=== PATIENT | male | born 1965 | race Caucasian/White ===

== ENCOUNTER 2019-01-26 13:58 | Inpatient (IN) ==
[2019-01-26] MEDS ORDERED: KETOROLAC 30 MG/ML VIAL IV ONE (14:04)
[2019-01-26] MEDS ORDERED: 0.9 % SODIUM CHLORIDE 1,000 ML IV ONE (14:08)
[2019-01-26] MEDS ORDERED: ONDANSETRON 4 MG/2 ML VIAL IV ONE (14:08)
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
[2019-01-26 15:14] LABS: Basophils # (Auto) 0 K/mcL (0.0-0.3); Basophils % (Auto) 0.5 % (0.0-2.0); Eosinophils # (Auto) 0.2 K/mcL (0.0-0.7); Eosinophils % (Auto) 2.6 % (0.0-7.0); Granulocytes % (Auto) 74.9 % (38.0-78.0); Hematocrit 42.9 % (41.0-55.0); Hemoglobin 14.9 g/dL (13.5-16.5); Lymphocytes # (Auto) 1.1 K/mcL (1.5-4.8); Mean Cell Volume 83.7 fL (80.0-100.0); Mean Corpuscular HGB Conc 34.6 g/dL (31.0-36.0); Mean Platelet Volume 7.4 fL (7.4-10.4); Monocytes # (Auto) 0.8 K/mcL (0.1-0.9); Platelet Count 307 K/mcL (140-440); RBC 5.12 M/mcL (4.50-5.90); Red Cell Distribution Width 12.1 % (11.5-14.5); WBC 8.8 K/mcL (4.5-11.0)
--- NOTE | 2019-01-26 15:27 | XRay Report ---
HISTORY: Stepped on nail three days ago with pain in the foot and ankle FINDINGS: Three views were obtained of the right foot and ankle separately. There is soft tissue swelling with gas in the subcutaneous tissues lateral to the head of the fifth metatarsal. There is resorption of bone in the head of the metatarsal with milder resorption at the base of the proximal phalanx in the fifth toe. The fifth metatarsal phalangeal joint is widened. There is no gas in the joint space. No foreign body is present at this site. There is no reabsorption of bone throughout the remainder of the foot or ankle. Patient has mild to moderate osteoarthritis in the ankle with moderate size spurs along the margins of both medial lateral malleoli. The ankle joint space is normal in width. There is no joint effusion. Small spur is present in the plantar surface of the calcaneus. There is also mild arthritis at the first metatarsal phalangeal joint. Mild soft tissue swelling is present around the ankle. IMPRESSION: Osteomyelitis in the head of the fifth metatarsal and a septic joint at the fifth metatarsal phalangeal joint IMPRESSION: Interpreted and Authenticated by: Paul Marrero 01/26/19
[2019-01-26 15:31] LABS: ALT/SGPT 24 U/l (0-40); AST/SGOT 16 U/l (0-37); Albumin 4.1 gm/dL (3.2-5.2); Albumin/Globulin Ratio 1.1 (1.0-2.3); Alkaline Phosphatase 98 U/L (39-117); Bilirubin,Total 0.3 mg/dL (0.0-1.0); Blood Urea Nitrogen 15 mg/dl (6-20); Calcium 9.8 mg/dl (8.6-10.4); Carbon Dioxide 25 mmol/L (22-30); Chloride 94 mmol/L (96-108); Globulin 3.6 gm/dL (2.2-3.7); Glomerular Filtration Rate 103; Glucose 260 mg/dL (70-105)
--- NOTE | 2019-01-26 17:10 | Internal Med History&Physical ---
Medical - H&P: [facility] Patient information: Note initiated : 01/26/19 at 5:06 pm Service Date, if different from initiated Date: [] Patient: Rivera Major 53 y/o M admitted on for Foot Ulcer. Chief Complaint: [] History of present illness: Mr. Major is a 53 year old M 53-year-old male who sent in by Dr. French and Dr. Vides and has been undergoing IV antibiotics for a diabetic right foot ulcer with no improvement, and has been following with wound care. He has been on IV vancomycin for at least the past 5 days. He was sent in for failure of outpatient therapy and likely needing surgical debridement. Patient states over the past few days is also increased in redness and swelling. His blood glucose is 260. He says his blood sugars typically run between 100- 180 however his A1c outpatient was 14. Blood pressure was elevated in the ED however patient states it is typically 140-150. He says it is draining some clear fluid. He first noticed the wound about 5 weeks ago when he was walking on his floor noticed blood from his foot. In the ED foot x-ray showed osteo-of the head of the fifth metatarsal and infection in the joint. Dr. vides discussed the case with Dr. Pantoja and also request ID consultation. She feels a little chills but no fever. No other pains or complaints but is quite anxious and worried about his foot. Review of Systems: Pertinent positives as above. Denies headache/fever/chills/nausea/vomiting/chest or abdominal pain/cough/dysp anita/diarrhea. Remaining 10 point review of system reviewed negative. Medical - H&P: PMH Medical history: Past medical history: Diabetes Anxiety Osteoarthritis Obesity Past surgical history: Right total knee arthroplasty Appendectomy Umbilical hernia repair Family: Mother colon cancer Father with heart disease and alcohol use Social history: Denies tobacco Occasional alcohol Medical - H&P: Meds Home Medications Medication Instructions Recorded Confirmed Type LORazepam [Ativan] 2 mg PO HSP PRN 12/05/14 12/08/14 History Multivitamin [Once Daily] 1 tab PO DAILY 12/05/14 12/08/14 History [place]-3 Fatty Acids/Fish Oil 1 cap PO DAILY 12/05/14 12/08/14 History [[place] 3 Fish Oil Softgel] Vitamin D3 1,000 unit PO DAILY 12/05/14 12/08/14 History metFORMIN [Glucophage] 1,000 mg PO BIDCC 12/05/14 12/08/14 History morphine 15 mg PO Q6HP PRN 12/05/14 12/08/14 History HYDROcodone/APAP 10/325MG [[place] 1 - 2 tab PO Q4H PRN #60 tablet 12/10/14 Rx 10/325Mg] Allergies Allergy/AdvReac Type Severity Reaction Status Date / Time No Known Drug Allergies Allergy Verified 12/08/14 10:43 Medical - H&P: Exam - Constitutional Vitals: Temp Pulse Resp BP Pulse Ox 99.1 F H 94 H 16 177/95 98 01/26/19 14:00 01/26/19 15:42 01/26/19 14:00 01/26/19 14:00 01/26/19 15:42 Exam: General: Alert, Awake, No acute Distress, obese Eyes/N/T: EOMI, PEERL, Head/Neck: neck supple, normocephalic atraumatic CV: RRR, No murmurs, normal s1/s2 Pulm: Clear b/l, no wheezing/rhonchi/rales Abd: soft, nontender, +BS x4 Ext: no clubbing/cyanosis/edema LLE. Right foot/ankle with erythema/swelling, dressing in place Neuro: Alert, no focal deficits, moves all extremities, CN 2-12 grossly intact, symmetrical strength b/l upper/lower, decreased sensations bilateral feet chronic Skin: warm/dry Medical - H&P: Reslt - Labs CBC & Chem 7: 01/26/19 14:37 01/26/19 14:37 Labs: Short CBC 01/26/19 Range/Units 14:37 WBC 8.8 (4.5-11.0) K/mcL Hgb 14.9 (13.5-16.5) g/dL Hct 42.9 (41.0-55.0) % Plt Count 307 (140-440) K/mcL BMP 01/26/19 14:37 Sodium 132 L Potassium 3.8 Chloride 94 L Carbon Dioxide 25 BUN 15 Creatinine 0.8 Glucose 260 H Calcium 9.8 Liver Function 01/26/19 Range/Units 14:37 Total Bilirubin 0.3 (0.0-1.0) mg/dL AST 16 (0-37) U/l ALT 24 (0-40) U/l Alkaline Phosphatase 98 (39-117) U/L Albumin 4.1 (3.2-5.2) gm/dL - Impressions Foot imaging with osteophyte head of the fifth metatarsal and infection of the joint Medical - H&P: A/P - Narrative A/P Narrative: A: *Right Foot nonhealing diabetic foot ulcer w/surrounding cellulitis & Osteo (5th Metatarsal): failed outpt IV Abx, will need surgical debridement *DM: uncontrolled. A1c 14. Has been on metformin *HTN: *Anxiety: *Obesity P: -Dr. Vides/Kit for surgical debridement -ID consult -Eric/tegan for now, pending BC -pending ESR/CRP -prn BP meds, monitor BP -prn ativan -cont metformin but will likely need insulin started, SSI -DM education referral -ppx: heparin
[2019-01-26] MEDS ORDERED: VANCOMYCIN PER PHARMACY IV SCH (18:37)
[2019-01-26] MEDS ORDERED: LABETALOL 5 MG/ML ML IV PRN (18:37)
[2019-01-26] MEDS ORDERED: MAGNESIUM HYDROXIDE 30 ML ORAL.SUSP PO PRN (18:37)
[2019-01-26] MEDS ORDERED: ONDANSETRON 4 MG/2 ML VIAL IV PRN (18:37)
[2019-01-26] MEDS ORDERED: ALBUTEROL SULFATE 2.5 MG/3 ML NEBULIZER NEB PRN (18:37)
[2019-01-26] MEDS ORDERED: ENALAPRILAT 1.25 MG/ML VIAL IV PRN (18:37)
[2019-01-26] MEDS ORDERED: DEXTROSE 31 GM ORAL.SUSP PO PRN (18:37)
[2019-01-26] MEDS ORDERED: DEXTROSE 50% 50 ML VIAL IV PRN (18:37)
[2019-01-26] MEDS: INSULIN LISPRO 1 UNIT/0.01 ML UNIT SQ SCH ×2 (19:57→21:38)
[2019-01-26] MEDS: PIPERACILLIN SODIUM/TAZOBACTAM 3.375 GM in DEXTROSE 5% IN WATER 50 ML IV SCH ×2 (19:57→23:57)
[2019-01-26] MEDS: ACETAMINOPHEN 325 MG TABLET PO PRN (19:58)
[2019-01-26] MEDS: LORazepam 0.5 MG TABLET PO PRN (19:58)
[2019-01-26] MEDS: SENNOSIDES 1 TABLET PO SCH ×2 (21:49→21:56)
[2019-01-26] MEDS: VANCOMYCIN 1,500 MG in 0.9 % SODIUM CHLORIDE 500 ML IV SCH (21:49)
[2019-01-26] MEDS: DOCUSATE SODIUM 100 MG CAPSULE PO SCH ×2 (21:49→21:56)
[2019-01-26] MEDS: HEPARIN 5,000 UNIT/ML VIAL SQ SCH (21:49)
[2019-01-26] MEDS: INSULIN GLARGINE, HUMAN 1 UNIT/0.01 ML SQ SCH (22:02)
[2019-01-26] MEDS: 0.9 % SODIUM CHLORIDE 10 ML SYRINGE IV SCH (22:03)
[2019-01-26] MEDS ORDERED: 0.9 % SODIUM CHLORIDE 1,000 ML IV SCH (23:45)
[2019-01-27] MEDS: ACETAMINOPHEN 325 MG TABLET PO PRN (01:55)
[2019-01-27] MEDS: 0.9 % SODIUM CHLORIDE 10 ML SYRINGE IV SCH ×3 (04:32→20:09)
[2019-01-27] MEDS: PIPERACILLIN SODIUM/TAZOBACTAM 3.375 GM in DEXTROSE 5% IN WATER 50 ML IV SCH (05:14)
[2019-01-27 06:24] LABS: Basophils # (Auto) 0 K/mcL (0.0-0.3); Basophils % (Auto) 0.8 % (0.0-2.0); Eosinophils # (Auto) 0.2 K/mcL (0.0-0.7); Eosinophils % (Auto) 2.8 % (0.0-7.0); Hematocrit 41.2 % (41.0-55.0); Hemoglobin 13.9 g/dL (13.5-16.5); Lymphocytes # (Auto) 1.2 K/mcL (1.5-4.8); Lymphocytes % (Auto) 21.4 % (15.5-49.0); Mean Cell Volume 84.5 fL (80.0-100.0); Mean Corpuscular HGB Conc 33.8 g/dL (31.0-36.0); Mean Platelet Volume 7.4 fL (7.4-10.4); Monocytes # (Auto) 0.8 K/mcL (0.1-0.9); Platelet Count 268 K/mcL (140-440); RBC 4.87 M/mcL (4.50-5.90); WBC 5.8 K/mcL (4.5-11.0)
[2019-01-27 06:26] LABS: Prothrombin Time 13.1 sec (11.9-14.5)
[2019-01-27 06:59] LABS: ALT/SGPT 20 U/l (0-40); AST/SGOT 14 U/l (0-37); Albumin 3.5 gm/dL (3.2-5.2); Albumin/Globulin Ratio 1.2 (1.0-2.3); Alkaline Phosphatase 78 U/L (39-117); Bilirubin,Direct < 0.2 mg/dL (0.0-0.3); Bilirubin,Total 0.4 mg/dL (0.0-1.0); Blood Urea Nitrogen 9 mg/dl (6-20); Calcium 8.9 mg/dl (8.6-10.4); Carbon Dioxide 26 mmol/L (22-30); Chloride 99 mmol/L (96-108); Glomerular Filtration Rate 109; Glucose 344 mg/dL (70-105); Lactate Dehydrogenase 166 U/L (94-250); Phosphorous 4.2 mg/dL (2.7-4.5); Triglycerides 121 mg/dl (<150); Uric Acid 4.1 mg/dL (2.5-8.0)
--- NOTE | 2019-01-27 08:04 | Internal Med Progress Note ---
Medical - PN: Subj Patient information: Note initiated : 01/27/19 at 7:45 am Service Date, if different from initiated Date: [] Patient: Rivera Major 53 y/o M admitted on 01/26/19 for Foot Ulcer. Chief Complaint: [] Interval history: Mr. Major is a 53 year old M 53-year-old male who sent in by Dr. French and Dr. Vides and has been undergoing IV antibiotics for a diabetic right foot ulcer with no improvement, and has been following with wound care. He has been on IV vancomycin for at least the past 5 days. He was sent in for failure of outpatient therapy and likely needing surgical debridement. Patient states over the past few days is also increased in redness and swelling. His blood glucose is 260. He says his blood sugars typically run between 100- 180 however his A1c outpatient was 14. Blood pressure was elevated in the ED however patient states it is typically 140-150. He says it is draining some clear fluid. He first noticed the wound about 5 weeks ago when he was walking on his floor noticed blood from his foot. In the ED foot x-ray showed osteo-of the head of the fifth metatarsal and infection in the joint. Dr. vides discussed the case with Dr. Pantoja and also request ID consultation. She feels a little chills but no fever. No other pains or complaints but is quite anxious and worried about his foot. 01/27 Able to sleep okay last night. Feeling better and less anxious today. Feels his right foot swelling is improved as well as redness. Pressure better controlled today. No new complaints. Review of Systems: denies headache/fever/chills/nausea/vomiting/chest or abdominal pain/cough/dyspnea/diarrhea. Otherwise see above. - Constitutional Vitals: Vital Signs Temp Pulse Resp BP Pulse Ox 98.2 F 77 16 139/90 94 01/27/19 04:22 01/27/19 05:04 01/27/19 04:22 01/27/19 05:04 01/27/19 04:22 Period Temp Pulse Resp BP Sys/Fernandez Pulse Ox Last 24 Hr 97.7 F-99.6 F 77-101 14-18 123-177/72-105 93-99 Intake and Output 01/26/19 01/27/19 01/27/19 21:59 05:59 13:59 Intake Total 1050 2210 Output Total 700 4100 Balance 350 -1890 Weight 153.541 kg Intake & Output: Intake & Output 01/26/19 01/27/19 01/27/19 21:59 05:59 13:59 Intake Total 1050 2210 Output Total 700 4100 Balance 350 -1890 Weight 153.541 kg Intake: IV 1050 550 Sodium Chloride 0.9% 1,000 ml @ 1000 Wide Open IV BOLUS ONE Rx#: [id number] Zosyn 3.375 gm In Dextrose 5% 50 50 in Water 50 ml @ 100 mls/hr IV Q6H [place] Rx#:[id number] Vancomycin 1,500 mg In Sodium 500 Chloride 0.9% 500 ml @ 333.3 mls/hr IV Q12H [place] Rx#: [id number] Oral 1660 Output: Void Amount 700 4100 Other: Percent of Meal Consumed 100% Nourishment/Supplement name Egg salad cups with crackers x2, 8 king cracker squares. Urine Appearance Clear Clear Urine Color Bright Yellow Pale # Voids 1 Exam: General: Alert, Awake, No acute Distress, obese Eyes/N/T: EOMI, Head/Neck: neck supple, CV: RRR, No murmurs, Pulm: Clear b/l, no wheezing/rhonchi/rales Abd: soft, nontender, +BS x4 Ext: no clubbing/cyanosis/edema LLE. Right foot/ankle with erythema/swelling improving, dressing in place Neuro: Alert, no focal deficits, moves all extremities, Skin: warm/dry Medical - PN: Obj Da - Labs CBC & Chem 7: 01/27/19 05:12 01/27/19 05:12 Labs: Abnormal Lab Results 01/27/19 01/27/19 01/26/19 05:12 05:12 14:37 Lymph % (Auto) [place] % (Auto) 13.0 H Lymph # (Auto) 1.2 L ESR Sodium Chloride Glucose 344 H C-Reactive Protein 5.5 H 01/26/19 01/26/19 01/26/19 14:37 14:37 14:37 Lymph % (Auto) 13.0 L [place] % (Auto) Lymph # (Auto) 1.1 L ESR 55 H Sodium 132 L Chloride 94 L Glucose 260 H C-Reactive Protein Meds: Medications Acetaminophen (Tylenol) 650 mg PO Q6HP PRN; Protocol PRN Reason: Per Pain Protocol/Fever > 101 Last Admin: 01/27/19 01:55 Dose: 650 mg Documented by: Hydrocodone Bitart/Acetaminophen ([place] 5/325mg) 1 tab PO Q4HP PRN; Protocol PRN Reason: Per Pain Protocol Albuterol Sulfate (Ventolin) 2.5 mg NEB Q2HP PRN PRN Reason: Shortness Of Breath Dextrose (Dextrose 50%) 0 ml IV UD PRN PRN Reason: Hypoglycemia Diagnostic Test (Pha) (Accu-Chek) 1 each FS [facility] Last Admin: 01/27/19 07:42 Dose: 1 each Documented by: Docusate Sodium (Colace) 100 mg PO BID [facility] Last Admin: 01/26/19 21:56 Dose: Not Given Documented by: Enalaprilat (Vasotec) 0 mg IV Q2HP PRN PRN Reason: Hypertension Last Admin: 01/27/19 04:32 Dose: 0.625 mg Documented by: Glucose (Insta-Glucose) 15 gm PO PRN PRN PRN Reason: Hypoglycemia Heparin Sodium (Porcine) (Heparin) 5,000 unit SQ Q12 [facility] Last Admin: 01/26/19 21:49 Dose: 5,000 unit Documented by: Piperacillin Sod/Tazobactam (Sod 3.375 gm/ Dextrose) 50 mls @ 100 mls/hr IV Q6H [facility]; Protocol Last Admin: 01/27/19 05:14 Dose: 100 mls/hr Documented by: Vancomycin HCl 1,500 mg/ (Sodium Chloride) 500 mls @ 333.3 mls/hr IV Q12H [facility] Last Infusion: 01/26/19 23:40 Dose: Infused Documented by: Sodium Chloride (Sodium Chloride 0.9%) 1,000 mls @ 100 mls/hr IV .Q10H [facility] Stop: 01/27/19 09:44 Last Admin: 01/26/19 23:57 Dose: 100 mls/hr Documented by: Insulin Glargine (Lantus) 10 unit SQ BID [facility] Last Admin: 01/26/19 22:02 Dose: 10 unit Documented by: Insulin Human Lispro (Humalog) 0 unit SQ [facility]; Protocol Last Admin: 01/26/19 21:38 Dose: Not Given Documented by: Labetalol HCl (Trandate) 0 mg IV Q2HP PRN PRN Reason: Hypertension Lorazepam (Ativan) 0.5 mg PO Q6HP PRN PRN Reason: ANXIETY/SEDATION Last Admin: 01/26/19 19:58 Dose: 0.5 mg Documented by: Magnesium Hydroxide (Milk Of Magnesia) 30 ml PO DAILYP PRN PRN Reason: Constipation Metformin HCl (Glucophage) 1,000 mg PO BIDCC [facility] Morphine Sulfate (Morphine) 15 mg PO Q6HP PRN; Protocol PRN Reason: Pain Ondansetron HCl (Zofran) 4 mg IV Q6HP PRN PRN Reason: Nausea And Vomiting Senna (Senokot) 2 tab PO HS [facility] Last Admin: 01/26/19 21:56 Dose: Not Given Documented by: Sodium Chloride (Saline Flush) 10 ml IV Q8 [facility] Last Admin: 01/27/19 04:32 Dose: Not Given Documented by: Vancomycin HCl (Vancomycin Per Pharmacy) 1 order IV UD [facility]; Protocol Medical - PN: A/P - Time Spent With Patient Total time spent is greater than 50% in coordination of care (as documented) at patient's floor/unit and/or counseling patient: - Narrative A/P Narrative: A: *Right Foot nonhealing diabetic foot ulcer w/surrounding cellulitis & Osteo (5th Metatarsal): failed outpt IV Abx, will need surgical debridement *DM: uncontrolled. A1c 14. Has been on metformin and recently started lantus 10 bid as well as humalog *HTN: *Anxiety: *Obesity P: -Dr. Vides/Kit for surgical debridement -ID consult -Eric/tegan for now, pending BC -pending ESR/CRP -prn BP meds, monitor BP -prn ativan -cont metformin and lantus(titrate up when diet restarted), SSI -DM education referral -ppx: heparin
[2019-01-27] MEDS: INSULIN LISPRO 1 UNIT/0.01 ML UNIT SQ SCH ×6 (08:14→22:40)
[2019-01-27] MEDS: metFORMIN 500 MG TABLET PO SCH ×2 (08:20→17:20)
--- NOTE | 2019-01-27 09:49 | Orthopedic Consult Note ---
History of Present Illness - [facility] Patient information: Note initiated : 01/27/19 at 9:44 am Service Date, if different from initiated Date: [] Patient: Rivera Major 53 y/o M admitted on 01/26/19 for Foot Ulcer. Chief Complaint: [Wound right foot] Consult date: 01/26/19 Requesting physician: Brayden Rios Consult reason: other (Infection with wound right foot) History of present illness: Patient has a recent history of an ulceration on the right foot. He stepped on a sharp object but didn't know it because of the lack of feeling in the foot. X- ray was taken yesterday with shows osteomyelitis in the head of the fifth metatarsal and a septic joint at the fifth metatarsal phalangeal joint. Review of Systems Constitutional: as per [facility] Medications and Allergies Home Medications Medication Instructions Recorded Confirmed Type LORazepam [Ativan] 2 mg PO HSP PRN 12/05/14 01/26/19 History Multivitamin [Once Daily] 1 tab PO DAILY 12/05/14 01/26/19 History [place]-3 Fatty Acids/Fish Oil 1 cap PO DAILY 12/05/14 01/26/19 History [[place] 3 Fish Oil Softgel] Vitamin D3 1,000 unit PO DAILY 12/05/14 01/26/19 History metFORMIN [Glucophage] 1,000 mg PO BIDCC 12/05/14 01/26/19 History morphine 15 mg PO Q6HP PRN 12/05/14 01/26/19 History HYDROcodone/APAP 10/325MG [[place] 1 - 2 tab PO Q4H PRN #60 tablet 12/10/14 01/26/19 Rx 10/325Mg] Lantus Solostar 10 unit SQ BID 01/26/19 01/26/19 History Allergies Allergy/AdvReac Type Severity Reaction Status Date / Time No Known Drug Allergies Allergy Verified 12/08/14 10:43 Physical Examination - Ankle & Foot right Ankle appearance: swelling, erythema Foot appearance: swelling, erythema Assessment and Plan (1) Osteomyelitis Status: Acute Priority: High Qualifiers: Osteomyelitis type: other acute Osteomyelitis location: foot Laterality: right Qualified Code(s): M86.171 - Other acute osteomyelitis, right ankle and foot - Narrative A/P Narrative: Amputation planed of the fifth metatarsal with irrigation
[2019-01-27] MEDS ORDERED: SCOPOLAMINE 1 PATCH PATCH TOPICAL PRN (10:01)
[2019-01-27] MEDS ORDERED: IPRATROPIUM/ALBUTEROL 3 ML AMPUL.NEB NEB PRN ×2 (10:01→12:19)
[2019-01-27] MEDS: HEPARIN 5,000 UNIT/ML VIAL SQ SCH ×2 (10:10→20:07)
[2019-01-27] MEDS: INSULIN GLARGINE, HUMAN 1 UNIT/0.01 ML SQ SCH ×2 (10:11→20:07)
[2019-01-27] MEDS: DOCUSATE SODIUM 100 MG CAPSULE PO SCH ×2 (10:11→20:08)
--- NOTE | 2019-01-27 10:18 | General Surgery Consult Note ---
History of Present Illness Patient information: Note initiated : 01/27/19 at 9:48 am Service Date, if different from initiated Date: [] Patient: Rivera Major 53 y/o M admitted on 01/26/19 for Foot Ulcer. Chief Complaint: [] I saw this patient for FIRST time in the clinic for a NON healing neuropathic ulcer of RIGHT plantar anterior lateral foot with edema and cellulitis involving foot, ankle and leg. I reassesses him this morning with ANKITA Geiger, Inpatient wound care nurse. He was referred to ER for admission, evaluation and further management. I discussed his presentation and reviewed clinical pictures of initial encounter with Dr. Russell, ER Physician and Dr. Rios, Hospitalist Physician. Later, I discussed this case with Dr.Karl Squires, Self Contained Behavior Unit Teacher and requested a consultation from him for surgical debridement. Medications and Allergies Home Medications Medication Instructions Recorded Confirmed Type LORazepam [Ativan] 2 mg PO HSP PRN 12/05/14 01/26/19 History Multivitamin [Once Daily] 1 tab PO DAILY 12/05/14 01/26/19 History [place]-3 Fatty Acids/Fish Oil 1 cap PO DAILY 12/05/14 01/26/19 History [[place] 3 Fish Oil Softgel] Vitamin D3 1,000 unit PO DAILY 12/05/14 01/26/19 History metFORMIN [Glucophage] 1,000 mg PO BIDCC 12/05/14 01/26/19 History morphine 15 mg PO Q6HP PRN 12/05/14 01/26/19 History HYDROcodone/APAP 10/325MG [[place] 1 - 2 tab PO Q4H PRN #60 tablet 12/10/14 01/26/19 Rx 10/325Mg] Lantus Solostar 10 unit SQ BID 01/26/19 01/26/19 History Allergies Allergy/AdvReac Type Severity Reaction Status Date / Time No Known Drug Allergies Allergy Verified 12/08/14 10:43 Exam Temp Pulse Resp BP Pulse Ox 98.3 F 79 18 99/58 96 01/27/19 08:00 01/27/19 08:00 01/27/19 08:00 01/27/19 08:00 01/27/19 08:00 - General physical appearance well developed, well nourished, no pain - Eyes PERRL, normal ocular movement - ENT normal pinna, normal mucosa, no congestion - Head Head exam IM: Present: atraumatic, normocephalic - Neck no masses, trachea midline, no venous distension - Cardiovascular Cardiovascular exam IM: Present: normal rate and rhythm - Respiratory normal respiratory effort, clear to auscultation - Abdomen Abdomen: Present: soft, non tender, bowel sounds - Integumentary Present: other (Infected wound plantar neuropathic ulcer RIGHT anterior lateral foot and cellulitis with edema involving foot, ankle and lower 2/3rds of leg. ) - Neurologic Present: other ([place]. Peripheral neuropathy. ) - Musculoskeletal Present: other (Infected open wound probes to the bone. RIGHT plantar 5 the toe MPJ area. ) - Psychiatric Present: oriented to time, oriented to person, oriented to place, speech is normal, memory intact, other (Distressed because of the circumstances . ) Results - Labs 01/27/19 05:12 01/27/19 05:12 Abnormal lab results 01/26/19 01/26/19 01/26/19 Range/Units 14:37 14:37 14:37 Lymph % (Auto) 13.0 L (15.5-49.0) % [place] % (Auto) (1.0-12.0) % Lymph # (Auto) 1.1 L (1.5-4.8) K/mcL ESR 55 H (0-15) mm/hr Sodium 132 L (133-145) mmol/L Chloride 94 L (96-108) mmol/L Glucose 260 H (70-105) mg/dL C-Reactive Protein (0.0-0.8) mg/dl 01/26/19 01/27/19 01/27/19 Range/Units 14:37 05:12 05:12 Lymph % (Auto) (15.5-49.0) % [place] % (Auto) 13.0 H (1.0-12.0) % Lymph # (Auto) 1.2 L (1.5-4.8) K/mcL ESR (0-15) mm/hr Sodium (133-145) mmol/L Chloride (96-108) mmol/L Glucose 344 H (70-105) mg/dL C-Reactive Protein 5.5 H (0.0-0.8) mg/dl Diabetes panel 01/26/19 01/27/19 Range/Units 14:37 05:12 Sodium 132 L 137 (133-145) mmol/L Potassium 3.8 4.2 (3.3-5.1) mmol/L Chloride 94 L 99 (96-108) mmol/L Carbon Dioxide 25 26 (22-30) mmol/L BUN 15 9 (6-20) mg/dl Creatinine 0.8 0.7 (0.7-1.2) mg/dl Glucose 260 H 344 H (70-105) mg/dL Calcium 9.8 8.9 (8.6-10.4) mg/dl AST 16 14 (0-37) U/l ALT 24 20 (0-40) U/l Alkaline Phosphatase 98 78 (39-117) U/L Total Protein 7.7 6.5 (5.9-8.4) gm/dL Albumin 4.1 3.5 (3.2-5.2) gm/dL Triglycerides 121 (<150) mg/dl Calcium panel 01/26/19 01/27/19 Range/Units 14:37 05:12 Calcium 9.8 8.9 (8.6-10.4) mg/dl Phosphorus 4.2 (2.7-4.5) mg/dL Albumin 4.1 3.5 (3.2-5.2) gm/dL Pituitary panel 01/26/19 01/27/19 Range/Units 14:37 05:12 Sodium 132 L 137 (133-145) mmol/L Potassium 3.8 4.2 (3.3-5.1) mmol/L Chloride 94 L 99 (96-108) mmol/L Carbon Dioxide 25 26 (22-30) mmol/L BUN 15 9 (6-20) mg/dl Creatinine 0.8 0.7 (0.7-1.2) mg/dl Glucose 260 H 344 H (70-105) mg/dL Calcium 9.8 8.9 (8.6-10.4) mg/dl Adrenal panel 01/26/19 01/27/19 Range/Units 14:37 05:12 Sodium 132 L 137 (133-145) mmol/L Potassium 3.8 4.2 (3.3-5.1) mmol/L Chloride 94 L 99 (96-108) mmol/L Carbon Dioxide 25 26 (22-30) mmol/L BUN 15 9 (6-20) mg/dl Creatinine 0.8 0.7 (0.7-1.2) mg/dl Glucose 260 H 344 H (70-105) mg/dL Calcium 9.8 8.9 (8.6-10.4) mg/dl Total Bilirubin 0.3 0.4 (0.0-1.0) mg/dL AST 16 14 (0-37) U/l ALT 24 20 (0-40) U/l Alkaline Phosphatase 98 78 (39-117) U/L Total Protein 7.7 6.5 (5.9-8.4) gm/dL Albumin 4.1 3.5 (3.2-5.2) gm/dL All other labs normal. Assessment and Plan (1) Cellulitis Status: Acute Priority: High Qualifiers: Site of cellulitis of extremity: lower extremity Laterality: right (2) Diabetic foot infection Status: Acute Priority: High (3) Osteomyelitis Status: Acute Priority: High Qualifiers: Osteomyelitis type: other acute Osteomyelitis location: foot Laterality: right Qualified Code(s): M86.171 - Other acute osteomyelitis, right ankle and foot (4) Septic arthritis Status: Acute Priority: High Comment: INFECTED neuropathic traumatic and pressure ulcer RIGHT lateral foot with cellulitis. Acute osteomyelitis of 5th toe MPJ. Patient referred to Dr. ALESSANDRA SQUIRES, Self Contained Behavior Unit Teacher for surgery / debridement. I will be follwo ing htis patietnfrom wound care point of view. Qualifiers: Septic arthritis location: foot Laterality: right
[2019-01-27] MEDS: VANCOMYCIN 1,500 MG in 0.9 % SODIUM CHLORIDE 500 ML IV SCH (10:49)
[2019-01-27 11:21] LABS: Estimated Average Glucose(eAG) 344 mg/dL; Hemoglobin A1C 13.6 % HGB (4.0-6.0)
[2019-01-27 11:23] LABS: Appearance,Urine CLEAR; Bacteria,Urine 0 /hpf (0); Bilirubin,Urine NEG (NEG); Color,Urine YELLOW; Culture Indicated,Urine NO; Glucose,Urine (UA) >=500 mg/dL (NEG); Ketones,Urine NEG (NEG); Leukocyte Esterase,Urine NEG /uL (NEG); Mucus,Urine FEW /hpf (0); Nitrate,Urine NEG (NEG); Protein,Urine NEG (NEG); Specific Gravity,Urine 1.024 (1.000-1.035); Urine Blood NEG mg/dL (<0.03); Urine RBC 1 /hpf (0-1); Urine Squamous Epithelial Cell 0 /hpf (0-4); Urine WBC < 1 /hpf (0-4); Urobilinogen,Urine NEG (NEG)
[2019-01-27] MEDS ORDERED: ONDANSETRON 4 MG/2 ML VIAL IV ONE (11:56)
[2019-01-27] MEDS ORDERED: KETAMINE 100 MG/ML ML IV ONE (11:56)
[2019-01-27] MEDS ORDERED: PROPOFOL 200 MG/20 ML VIAL IV ONE (11:56)
[2019-01-27] MEDS ORDERED: LIDOCAINE HCL/PF 100 MG/5 ML SYRINGE IV ONE (11:56)
[2019-01-27] MEDS ORDERED: DEXAMETHASONE 10 MG/ML VIAL IV ONE (11:56)
[2019-01-27] MEDS ORDERED: NALOXONE HCL 0.4 MG/ML VIAL IV PRN (12:19)
[2019-01-27] MEDS ORDERED: LACTATED RINGERS 250 ML IV PRN (12:19)
[2019-01-27] MEDS ORDERED: PROMETHAZINE 25 MG/ML VIAL IV PRN (12:19)
[2019-01-27] MEDS ORDERED: MEPERIDINE 25 MG/ML SYRINGE IV PRN (12:19)
[2019-01-27] MEDS ORDERED: diphenhydrAMINE 50 MG/ML VIAL IV PRN (12:19)
[2019-01-27] MEDS ORDERED: fentaNYL 100 MCG/2 ML VIAL IV PRN (12:19)
[2019-01-27] MEDS ORDERED: ONDANSETRON 4 MG/2 ML VIAL IV PRN (12:19)
--- NOTE | 2019-01-27 12:29 | Brief Operative Note ---
Date of procedure: 01/27/19 Pre-op diagnosis: Osteomyelitis right fifth metatarsal Post-op diagnosis: same Procedure: Partial amputation fifth metatarsal with incision and drainage Grafts/Implants: No Anesthesia: GLMA Complications: none Surgeon: Carl Pantoja Estimated blood loss (cc): 50 Specimens Removed/Pathology: other (Bone and fluid culture) Condition: stable Disposition: PACU
[2019-01-27] MEDS ORDERED: LACTATED RINGERS 1,000 ML IV SCH (12:30)
--- NOTE | 2019-01-27 12:43 | Operative Note ---
DATE OF OPERATION: 01/27/2019 PREOPERATIVE DIAGNOSIS: Osteomyelitis, right fifth metatarsal. POSTOPERATIVE DIAGNOSIS: Osteomyelitis, right fifth metatarsal. PROCEDURE: Partial amputation right fifth metatarsal with incision and drainage. SURGEON: Carl Pantoja DPM IMPLANTS: None. ANESTHESIA: GLMA. ESTIMATED BLOOD LOSS: 50 mL SPECIMENS: Bone and fluid culture, right foot. CONDITION: Stable. DISPOSITION: PACU. DESCRIPTION OF PROCEDURE: The patient was brought to the operating room and placed on the operative table in supine position. The right lower extremity was scrubbed, prepped and draped in the usual aseptic manner. GLMA initiated. A 3 cm incision was placed on the dorsal medial aspect of the right fifth metatarsal. A full thickness flap was created. There is abundant purulent drainage and associated wound on the plantar aspect which communicated through the dorsal aspect. This culture was taken and sent for pathological and microbiological assessment. A sagittal saw was used to remove a bone from the half of the shaft of the fifth metatarsal to the metatarsophalangeal joint. The neck of the metatarsal was noted to be very soft and degenerate and necrotic. This was fully irrigated and removed. A 3 liter bag of normal saline was used under pulse lavage to clean this area. Additional inspection revealed no remaining bone. The area was packed with Betadine-soaked gauze, Kerlix, Webril, and an EVERARDO wrap. The patient tolerated the procedure and anesthesia well. He will continue to receive four antibiotics and follow up in the hospital. KDJ:diana Job ID: [id number] Doc ID: [id number] Carl Pantoja DPM
[2019-01-27] MEDS: ACETAMINOPHEN 1,000 MG/100 ML BOTTLE IV SCH ×2 (12:50→19:02)
[2019-01-27] MEDS: HYDROcodone/APAP 5/325MG TABLET PO PRN ×2 (14:37→19:55)
[2019-01-27] MEDS: LORazepam 0.5 MG TABLET PO PRN ×2 (15:09→21:18)
[2019-01-27] MEDS: morphine 15 MG TABLET PO PRN ×2 (17:46→23:10)
[2019-01-27] MEDS: LINEZOLID 600 MG TABLET PO SCH (20:06)
[2019-01-27] MEDS: SENNOSIDES 1 TABLET PO SCH (20:08)
--- NOTE | 2019-01-27 20:25 | Infectious Disease Consult ---
History of Present Illness Patient information: Note initiated : 01/27/19 at 8:05 pm Service Date, if different from initiated Date: [] Patient: Rivera Major 53 y/o M admitted on 01/26/19 for Foot Ulcer. Chief Complaint: [] Consult date: 01/27/19 Requesting Physician: Brayden Rios Reason for Consult: right foot infection Chief complaint: i have swelling of right leg and pus drainage from foot wound History of present illness: 53-year-old man with PMHx of: - DM2, on insulin: A1C 14 - b/l knee replacement Pt is admitted after acute swelling, redness of right leg and pus drainage from right foot wound. Pt thinks that he stepped on something sharp in his basement about a month ago. He didnot pay much attention, and continued to work. His work involves walking and climbing multiple steps everyday. His PCP attempted treatment with PO Bactrim with no improvement, and tried IV Vanc for 5 days. Pt has been following with wound care at [facility], who recommended admission to hospital for surgical debridement. He endorsed subj fevers. Denied any pet contact, n/v, diarrhea. In the ED on 01/26, BP was 148/84, rest VS were normal, WBC 8.8, Cr 0.8. A right foot x-ray showed Osteomyelitis in the head of the fifth metatarsal and a septic joint at the fifth metatarsal phalangeal joint. Pt was started on IV Vanc and IV Zosyn. Blood Cx, 2 sets were sent. Pt had an uneventful night. At time of visit, pt was doing well. He was NPO for his scheduled foot debridement surgery. IV Vanc and IV Zosyn were stopped (to increase the diagnostic yield of cultures). He later underwent "Partial amputation right fifth metatarsal with incision and drainage" with operative Cx sent. Review of Systems All systems PM: reviewed and no additional remarkable complaints except as state d Constitutional: as per HPI Past History Past medical history: past hx of Staph aureus wound infections Past family history: no sick contacts Past social history: lives in [place] Medications and Allergies Home Medications Medication Instructions Recorded Confirmed Type LORazepam [Ativan] 2 mg PO HSP PRN 12/05/14 01/26/19 History Multivitamin [Once Daily] 1 tab PO DAILY 12/05/14 01/26/19 History [place]-3 Fatty Acids/Fish Oil 1 cap PO DAILY 12/05/14 01/26/19 History [[place] 3 Fish Oil Softgel] Vitamin D3 1,000 unit PO DAILY 12/05/14 01/26/19 History metFORMIN [Glucophage] 1,000 mg PO BIDCC 12/05/14 01/26/19 History morphine 15 mg PO Q6HP PRN 12/05/14 01/26/19 History HYDROcodone/APAP 10/325MG [[place] 1 - 2 tab PO Q4H PRN #60 tablet 12/10/14 01/26/19 Rx 10/325Mg] Lantus Solostar 10 unit SQ BID 01/26/19 01/26/19 History Allergies Allergy/AdvReac Type Severity Reaction Status Date / Time No Known Drug Allergies Allergy Verified 12/08/14 10:43 Physical Examination Vital signs: Temp Pulse Resp BP Pulse Ox 37.4 C H 90 20 150/88 92 01/27/19 19:41 01/27/19 19:41 01/27/19 19:41 01/27/19 19:41 01/27/19 19:41 General appearance: no acute distress Eyes pulmonary: nonicteric ENT: oropharynx moist Auscultation: bilateral: clear Cardiovascular: regular rate and rhythm Gastrointestinal: normoactive bowel sounds, non-tender Extremities: other (swelling of right leg below mid wilkerson, with pitting edema. Warm to touch. Minimally tender. Has a single wound on the lateral aspect of right forefoot, with purulence and tracking all way to bone. No gangrene. Dorsalis pedis palpable) Results - Laboratory Findings CBC and BMP: 01/27/19 05:12 01/27/19 05:12 PT/INR, D-dimer PT 13.1 sec (11.9-14.5) 01/27/19 05:12 INR 1.0 (0.9-1.1) 01/27/19 05:12 Abnormal lab findings: Abnormal Labs 01/26/19 01/26/19 01/26/19 14:37 14:37 14:37 Lymph % (Auto) 13.0 L [place] % (Auto) Lymph # (Auto) 1.1 L ESR 55 H Sodium 132 L Chloride 94 L Glucose 260 H Hemoglobin A1c C-Reactive Protein Urine Glucose (UA) 01/26/19 01/27/1919 14:37 05:12 05:12 Lymph % (Auto) [place] % (Auto) 13.0 H Lymph # (Auto) 1.2 L ESR Sodium Chloride Glucose 344 H Hemoglobin A1c C-Reactive Protein 5.5 H Urine Glucose (UA) 01/27/19 01/27/19 10:15 10:47 Lymph % (Auto) [place] % (Auto) Lymph # (Auto) ESR Sodium Chloride Glucose Hemoglobin A1c 13.6 H C-Reactive Protein Urine Glucose (UA) >=500 A Microbiology: Microbiology 01/26/19 15:12 Blood Blood Culture - Preliminary 01/26/19 14:37 Blood Blood Culture - Preliminary 01/26/19 11:18 Nose MRSA (PCR) - Final 01/27/19 11:00 Foot - Right Gram Stain - Final Assessment and Plan - Narrative A/P Narrative: A: 1. Rt 5th metatarsal osteomyelitis and right 5th MTP septic arthritis: -mechanism: contiguous focus - risk factors: DM2, peripheral neuropathy, continued weight bearing - no sepsis 2. Screening for MRSA: nasal PCR neg Recommendations: - Start PO Linezolid 600 mg q12 hrs for now - await operative and superficial tissue Cx obtained today. will modify treatment based on ID and sensi - anticipate 6 weeks of antibiotics will follow Holger Rogers MD Infectious diseases
[2019-01-27] MEDS: HYDROcodone/APAP 10/325MG TABLET PO PRN (23:40)
[2019-01-27] MEDS ORDERED: HYDROcodone/APAP 10/325MG TABLET PO ONE (23:44)
[2019-01-28] MEDS: ACETAMINOPHEN 1,000 MG/100 ML BOTTLE IV SCH ×2 (00:59→07:37)
[2019-01-28] MEDS: HYDROcodone/APAP 10/325MG TABLET PO PRN ×5 (04:28→21:34)
[2019-01-28] MEDS ORDERED: HYDROcodone/APAP 10/325MG TABLET PO ONE (04:30)
[2019-01-28] MEDS: INSULIN LISPRO 1 UNIT/0.01 ML UNIT SQ SCH ×5 (04:47→20:30)
[2019-01-28 06:39] LABS: Blood Urea Nitrogen 15 mg/dl (6-20); Calcium 9.6 mg/dl (8.6-10.4); Carbon Dioxide 26 mmol/L (22-30); Chloride 97 mmol/L (96-108); Glomerular Filtration Rate 103; Glucose 245 mg/dL (70-105)
[2019-01-28] MEDS: 0.9 % SODIUM CHLORIDE 10 ML SYRINGE IV SCH ×3 (06:58→20:31)
[2019-01-28] MEDS: HYDROmorphone 2 MG/ML VIAL IV PRN ×3 (07:39→19:18)
--- NOTE | 2019-01-28 07:59 | Internal Med Progress Note ---
Medical - PN: Subj Patient information: Note initiated : 01/28/19 at 7:54 am Service Date, if different from initiated Date: [] Patient: Rivera Major 53 y/o M admitted on 01/26/19 for Foot Ulcer. Chief Complaint: [] Interval history: Mr. Major is a 53 year old M 53-year-old male who sent in by Dr. French and Dr. Vides and has been undergoing IV antibiotics for a diabetic right foot ulcer with no improvement, and has been following with wound care. He has been on IV vancomycin for at least the past 5 days. He was sent in for failure of outpatient therapy and likely needing surgical debridement. Patient states over the past few days is also increased in redness and swelling. His blood glucose is 260. He says his blood sugars typically run between 100- 180 however his A1c outpatient was 14. Blood pressure was elevated in the ED however patient states it is typically 140-150. He says it is draining some clear fluid. He first noticed the wound about 5 weeks ago when he was walking on his floor noticed blood from his foot. In the ED foot x-ray showed osteo-of the head of the fifth metatarsal and infection in the joint. Dr. vides discussed the case with Dr. Pantoja and also request ID consultation. She feels a little chills but no fever. No other pains or complaints but is quite anxious and worried about his foot. 01/27 Able to sleep okay last night. Feeling better and less anxious today. Feels his right foot swelling is improved as well as redness. Pressure better controlled today. No new complaints. 01/28 Pain increased last night better controlled with PRN IV medication. Patient anxious at times. Blood glucose elevated and increasing Lantus. Occasional headache Review of Systems: denies fever/chills/nausea/vomiting/chest or abdominal pain /cough/dyspnea/diarrhea. Otherwise see above. - Constitutional Vitals: Vital Signs Temp Pulse Resp BP Pulse Ox 97.4 F 72 20 134/89 95 01/28/19 07:23 01/28/19 04:51 01/28/19 07:23 01/28/19 07:23 01/28/19 07:23 Period Temp Pulse Resp BP Sys/Fernandez Pulse Ox Last 24 Hr 97.4 F-99.4 F 70-90 12-20 92-152/58-96 91-99 Intake and Output 01/27/19 01/28/19 01/28/19 21:59 05:59 13:59 Intake Total 1920 1224 Output Total 775 500 Balance 1145 724 Weight 153.904 kg Intake & Output: Intake & Output 01/27/19 01/28/19 01/28/19 21:59 05:59 13:59 Intake Total 1920 1224 Output Total 775 500 Balance 1145 724 Weight 153.904 kg Intake: IV 200 100 Oral 1720 1124 Output: Void Amount 775 500 Other: Meal Dinner Percent of Meal Consumed 100% Feeding Ability Independent Urine Appearance Clear Clear Urine Color Dark Yellow Dark Yellow # Voids 1 # Bowel Movements 1 Exam: General: Alert, Awake, No acute Distress, obese Eyes/N/T: EOMI, Head/Neck: neck supple, CV: RRR, No murmurs, Pulm: Clear b/l, no wheezing/rhonchi/rales Abd: soft, nontender, +BS x4 Ext: no clubbing/cyanosis/edema LLE. Right foot/ankle with dressings intact Neuro: Alert, no focal deficits, moves all extremities, Skin: warm/dry Medical - PN: Obj Da - Labs CBC & Chem 7: 01/27/19 05:12 01/28/19 05:16 Labs: Abnormal Lab Results 01/28/19 01/28/19 01/27/19 05:16 05:16 10:47 Lymph % (Auto) [place] % (Auto) Lymph # (Auto) ESR Sodium Chloride Glucose 245 H Hemoglobin A1c C-Reactive Protein 4.5 H Urine Glucose (UA) >=500 A 01/27/19 01/27/19 01/27/19 10:15 05:12 05:12 Lymph % (Auto) [place] % (Auto) 13.0 H Lymph # (Auto) 1.2 L ESR Sodium Chloride Glucose 344 H Hemoglobin A1c 13.6 H C-Reactive Protein Urine Glucose (UA) 01/26/19 01/26/19 01/26/19 14:37 14:37 14:37 Lymph % (Auto) [place] % (Auto) Lymph # (Auto) ESR 55 H Sodium 132 L Chloride 94 L Glucose 260 H Hemoglobin A1c C-Reactive Protein 5.5 H Urine Glucose (UA) 01/26/19 14:37 Lymph % (Auto) 13.0 L [place] % (Auto) Lymph # (Auto) 1.1 L ESR Sodium Chloride Glucose Hemoglobin A1c C-Reactive Protein Urine Glucose (UA) Meds: Medications Acetaminophen (Tylenol) 650 mg PO Q6HP PRN; Protocol PRN Reason: Per Pain Protocol/Fever > 101 Last Admin: 01/27/19 01:55 Dose: 650 mg Documented by: Hydrocodone Bitart/Acetaminophen ([place] 10/325mg) 1 - 2 tab PO Q4H PRN; Protocol PRN Reason: Pain Last Admin: 01/28/19 04:28 Dose: 1 tab Documented by: Albuterol Sulfate (Ventolin) 2.5 mg NEB Q2HP PRN PRN Reason: Shortness Of Breath Dextrose (Dextrose 50%) 0 ml IV UD PRN PRN Reason: Hypoglycemia Diagnostic Test (Pha) (Accu-Chek) 1 each FS [facility] Last Admin: 01/28/19 04:31 Dose: 1 each Documented by: Docusate Sodium (Colace) 100 mg PO BID [facility] Last Admin: 01/27/19 20:08 Dose: Not Given Documented by: Enalaprilat (Vasotec) 0 mg IV Q2HP PRN PRN Reason: Hypertension Last Admin: 01/27/19 04:32 Dose: 0.625 mg Documented by: Glucose (Insta-Glucose) 15 gm PO PRN PRN PRN Reason: Hypoglycemia Heparin Sodium (Porcine) (Heparin) 5,000 unit SQ Q12 [facility] Last Admin: 01/27/19 20:07 Dose: 5,000 unit Documented by: Hydromorphone HCl (Dilaudid) 0.25 - 0.75 mg IV Q2HP PRN; Protocol PRN Reason: Per Pain Protocol Last Admin: 01/28/19 07:39 Dose: 0.75 mg Documented by: Insulin Glargine (Lantus) 10 unit SQ BID [facility] Last Admin: 01/27/19 20:07 Dose: 10 unit Documented by: Insulin Human Lispro (Humalog) 0 unit SQ [facility]; Protocol Last Admin: 01/28/19 04:47 Dose: 9 unit Documented by: Labetalol HCl (Trandate) 0 mg IV Q2HP PRN PRN Reason: Hypertension Linezolid (Zyvox) 600 mg PO Q12 [place]; Protocol Last Admin: 01/27/19 20:06 Dose: 600 mg Documented by: Lorazepam (Ativan) 0.5 mg PO Q6HP PRN PRN Reason: ANXIETY/SEDATION Last Admin: 01/27/19 21:18 Dose: 0.5 mg Documented by: Magnesium Hydroxide (Milk Of Magnesia) 30 ml PO DAILYP PRN PRN Reason: Constipation Metformin HCl (Glucophage) 1,000 mg PO BIDCC [facility] Last Admin: 01/27/19 17:20 Dose: 1,000 mg Documented by: Morphine Sulfate (Morphine) 15 mg PO Q6HP PRN; Protocol PRN Reason: Pain Last Admin: 01/27/19 23:10 Dose: 15 mg Documented by: Ondansetron HCl (Zofran) 4 mg IV Q6HP PRN PRN Reason: Nausea And Vomiting Senna (Senokot) 2 tab PO HS [facility] Last Admin: 01/27/19 20:08 Dose: Not Given Documented by: Sodium Chloride (Saline Flush) 10 ml IV Q8 [facility] Last Admin: 01/28/19 06:58 Dose: Not Given Documented by: Medical - PN: A/P - Time Spent With Patient Total time spent is greater than 50% in coordination of care (as documented) at patient's floor/unit and/or counseling patient: - Narrative A/P Narrative: A: *Right Foot nonhealing diabetic foot ulcer w/surrounding cellulitis & Osteo (5th Metatarsal): failed outpt IV Abx - s/p partial amputation 5th MT w/I&D (01/27) *DM: uncontrolled. A1c 14. Has been on metformin and recently started lantus 10 bid as well as humalog *HTN: better controlled, 2/2 pain, no prn's given o/n *Anxiety: *Obesity P: -Dr. Vides/Kit following -ID following, on zyvox -pending BC & surgical cx -prn BP meds, monitor BP -prn ativan -cont metformin and lantus(titrate up), SSI -DM education referral -ppx: heparin
[2019-01-28] MEDS: metFORMIN 500 MG TABLET PO SCH ×2 (08:01→17:39)
[2019-01-28] MEDS: INSULIN GLARGINE, HUMAN 1 UNIT/0.01 ML SQ SCH ×2 (08:16→20:30)
[2019-01-28] MEDS: LORazepam 0.5 MG TABLET PO PRN ×3 (09:23→21:35)
[2019-01-28] MEDS: HEPARIN 5,000 UNIT/ML VIAL SQ SCH ×2 (09:24→20:30)
[2019-01-28] MEDS: LINEZOLID 600 MG TABLET PO SCH ×2 (09:24→20:31)
[2019-01-28] MEDS: DOCUSATE SODIUM 100 MG CAPSULE PO SCH ×2 (09:24→20:30)
--- NOTE | 2019-01-28 09:48 | General Surgery Progress Note ---
Subjective Patient reports: no new complaints Narrative: Note initiated : 01/28/19 at 9:45 am Service Date, if different from initiated Date: [] Patient: Rivera Major- ysabel 53 y/o M admitted on 01/26/19 for Foot Ulcer. Chief Complaint: [] Patient seen on rounds this morning with Fely LUCIANO, Inpatient wound care nurse. Intraoperative findings reviewed and discussed with Dr. Carl Pantoja/ Apart from post surgical pain, patient had an uneventful night. NWB Rt. foot/leg. Lab results reviewed. Spoke with patient at length about possible future care and wound healing scenarios. Objective Temp Pulse Resp BP Pulse Ox 97.4 F 72 20 134/89 95 01/28/19 07:23 01/28/19 04:51 01/28/19 07:23 01/28/19 07:23 01/28/19 07:23 AVSS. No acute changes TJ. Dressings Right foot CDI. NO strike through bleeding. Labs reviewed: Blood sugar mid 200s Antibiotics recommendations ID appreciated. Patient using crutches at this time. NWB on operated Right foot. CONCERNED BOUT LACK OF INSURANCE. HE WILL NEED FURTHER WOUND CARE & SURGERY ?? - Additional Data Intake & Output - Last 24 hours: Intake & Output 01/26/19 01/27/19 01/28/19 01/29/19 05:59 05:59 05:59 05:59 Intake Total 3260 4694 Output Total 4800 1275 Balance -1540 3419 Weight 338 lb 8 oz 339 lb 4.8 oz - Labs 01/27/19 05:12 01/28/19 05:16 Diabetes panel 01/27/19 01/28/19 Range/Units 10:15 05:16 Sodium 137 (133-145) mmol/L Potassium 3.9 (3.3-5.1) mmol/L Chloride 97 (96-108) mmol/L Carbon Dioxide 26 (22-30) mmol/L BUN 15 (6-20) mg/dl Creatinine 0.8 (0.7-1.2) mg/dl Glucose 245 H (70-105) mg/dL Hemoglobin A1c 13.6 H (4.0-6.0) % HGB Calcium 9.6 (8.6-10.4) mg/dl Calcium panel 01/28/19 Range/Units 05:16 Calcium 9.6 (8.6-10.4) mg/dl Pituitary panel 01/28/19 Range/Units 05:16 Sodium 137 (133-145) mmol/L Potassium 3.9 (3.3-5.1) mmol/L Chloride 97 (96-108) mmol/L Carbon Dioxide 26 (22-30) mmol/L BUN 15 (6-20) mg/dl Creatinine 0.8 (0.7-1.2) mg/dl Glucose 245 H (70-105) mg/dL Calcium 9.6 (8.6-10.4) mg/dl Adrenal panel 01/28/19 Range/Units 05:16 Sodium 137 (133-145) mmol/L Potassium 3.9 (3.3-5.1) mmol/L Chloride 97 (96-108) mmol/L Carbon Dioxide 26 (22-30) mmol/L BUN 15 (6-20) mg/dl Creatinine 0.8 (0.7-1.2) mg/dl Glucose 245 H (70-105) mg/dL Calcium 9.6 (8.6-10.4) mg/dl Assessment and Plan (1) Cellulitis Status: Acute Current Visit: Yes (2) Diabetic foot infection Status: Acute Current Visit: Yes (3) Osteomyelitis Status: Acute Current Visit: Yes (4) Septic arthritis Problem details: INFECTED neuropathic traumatic and pressure ulcer RIGHT lateral foot with cellulitis. Acute osteomyelitis of 5th toe MPJ. Patient referred to Dr. CARL PANTOJA, Trial Judge for surgery / debridement. I will be follwo ing htis patietnfrom wound care point of view. Status: Acute Current Visit: Yes - Narrative A/P Narrative: Assessment: Satisfactory post surgical process. Source of sepsis management. NEEDS: Complete offloading with rollabout scooter. NEEDS: Education about diabetes, life style modifications. NEEDS: CM/SW to work / assist him in insurance eligibility. NEEDS: Post surgical X-Ray to see bone alignment/s, Plan: Continue present treatment. Following patient and developments. - Time Spent With Patient Total time spent is greater than 50% in coordination of care (as documented) at patient's floor/unit and/or counseling patient: 15 - 24 minutes
--- NOTE | 2019-01-28 11:56 | XRay Report ---
HISTORY: Postop resection of the fifth metatarsal due to osteomyelitis FINDINGS: Normal postoperative changes are present following surgical resection of the distal half of the fifth metatarsal. The remaining proximal portion of fifth metatarsal is normal. Overlying soft tissues are swollen. There is also overlying gauze material which partially obscures fine bone detail. The remaining fifth toe appears normally aligned. IMPRESSION: Normal alignment following surgical resection of the distal half of the fifth metatarsal Interpreted and Authenticated by: Paul Marrero 01/28/19
--- NOTE | 2019-01-28 18:23 | General Surgery Progress Note ---
Subjective Patient reports: no new complaints, other (Patient seen on rounds. Post OP - X Ray Right foot from this morning was reviewed.) Narrative: Note initiated : 01/28/19 at 6:20 pm Service Date, if different from initiated Date: [] Patient: Rivera Major 53 y/o M admitted on 01/26/19 for Foot Ulcer. Chief Complaint: [] Objective Temp Pulse Resp BP Pulse Ox 98 F 72 20 157/96 94 01/28/19 16:00 01/28/19 04:51 01/28/19 16:00 01/28/19 16:00 01/28/19 16:00 AVSS No Changes TJ Dressing Rt. foot CDI Post Op X Ray 01/28/2019 S/P resection of distal 5th metatarsal bone. Alignment appropriate. Post op edema. - Additional Data Intake & Output - Last 24 hours: Intake & Output 01/26/19 01/27/19 01/28/19 01/29/19 05:59 05:59 05:59 05:59 Intake Total 3260 4694 800 Output Total 4800 1275 Balance -1540 3419 800 Weight 338 lb 8 oz 339 lb 4.8 oz - Labs 01/27/19 05:12 01/28/19 05:16 Diabetes panel 01/28/19 Range/Units 05:16 Sodium 137 (133-145) mmol/L Potassium 3.9 (3.3-5.1) mmol/L Chloride 97 (96-108) mmol/L Carbon Dioxide 26 (22-30) mmol/L BUN 15 (6-20) mg/dl Creatinine 0.8 (0.7-1.2) mg/dl Glucose 245 H (70-105) mg/dL Calcium 9.6 (8.6-10.4) mg/dl Calcium panel 01/28/19 Range/Units 05:16 Calcium 9.6 (8.6-10.4) mg/dl Pituitary panel 01/28/19 Range/Units 05:16 Sodium 137 (133-145) mmol/L Potassium 3.9 (3.3-5.1) mmol/L Chloride 97 (96-108) mmol/L Carbon Dioxide 26 (22-30) mmol/L BUN 15 (6-20) mg/dl Creatinine 0.8 (0.7-1.2) mg/dl Glucose 245 H (70-105) mg/dL Calcium 9.6 (8.6-10.4) mg/dl Adrenal panel 01/28/19 Range/Units 05:16 Sodium 137 (133-145) mmol/L Potassium 3.9 (3.3-5.1) mmol/L Chloride 97 (96-108) mmol/L Carbon Dioxide 26 (22-30) mmol/L BUN 15 (6-20) mg/dl Creatinine 0.8 (0.7-1.2) mg/dl Glucose 245 H (70-105) mg/dL Calcium 9.6 (8.6-10.4) mg/dl Assessment and Plan (1) Cellulitis Status: Acute Current Visit: Yes (2) Diabetic foot infection Status: Acute Current Visit: Yes (3) Osteomyelitis Status: Acute Current Visit: Yes (4) Septic arthritis Problem details: INFECTED neuropathic traumatic and pressure ulcer RIGHT lateral foot with cellulitis. Acute osteomyelitis of 5th toe MPJ. Patient referred to Dr. ALESSANDRA SQUIRES, [employer] Manager for surgery / debridement. I will be follwo ing htis patietnfrom wound care point of view. Status: Acute Current Visit: Yes - Narrative A/P Narrative: Assessment: Satisfactory post surgical progress. Needs evaluation off loading / NWB Needs roll about scooter RESOLVING POST SURGICAL CHANGES Plan: Continue current treatment Reassess for WOUND VAC over next 24-28 hours. - Time Spent With Patient Total time spent is greater than 50% in coordination of care (as documented) at patient's floor/unit and/or counseling patient: less than 15 minutes
--- NOTE | 2019-01-28 20:11 | Infectious Disease Prog Note ---
Subjective Patient information: Note initiated : 01/28/19 at 8:10 pm Service Date, if different from initiated Date: [] Patient: Rivera Major 53 y/o M admitted on 01/26/19 for Foot Ulcer. Chief Complaint: [] Interval history: pt doing better. reports decrease in pain intensity in right foot. denied any fever, chills, n/v, diarrhea. Objective Objective Narrative: ao x 3, in nad no thrush chest cta s1 s2 normal bs ++, nttd right foot in surgical dressing; able to wiggle toes without any difficulty - Vital Signs Vital signs: Vital Signs Temp Pulse Resp BP Pulse Ox 01/28/19 20:00 36.7 C 77 16 130/81 92 01/28/19 16:00 36.6 C 20 157/96 94 01/28/19 12:00 36.4 C 20 149/95 96 01/28/19 07:23 36.3 C 20 134/89 95 01/28/19 04:51 36.4 C 72 16 144/96 99 01/27/19 22:58 36.6 C 87 20 128/83 95 Intake and Output 01/28/19 01/28/19 01/28/19 05:59 13:59 21:59 Intake Total 1224 1600 Output Total 500 Balance 724 1600 Intake: IV 100 Oral 1124 1600 Output: Void Amount 500 Other: Urine Appearance Clear Urine Color Dark Yellow Intake & Output: Intake & Output 01/28/19 01/28/19 01/28/19 05:59 13:59 21:59 Intake Total 1224 1600 Output Total 500 Balance 724 1600 Intake: IV 100 Oral 1124 1600 Output: Void Amount 500 Other: Urine Appearance Clear Urine Color Dark Yellow - Lab 01/27/19 05:12 01/28/19 05:16 Most recent lab results Calcium 9.6 mg/dl (8.6-10.4) 01/28/19 05:16 Phosphorus 4.2 mg/dL (2.7-4.5) 01/27/19 05:12 Magnesium 1.6 mg/dL (1.6-2.5) 01/27/19 05:12 Microbiology 01/26/19 15:12 Blood Blood Culture - Preliminary 01/26/19 14:37 Blood Blood Culture - Preliminary 01/27/19 12:15 Bone - Foot Gram Stain - Final 01/27/19 12:15 Bone - Foot Gram Stain - Final 01/27/19 12:15 Bone - Foot Anaerobic Culture - Preliminary 01/27/19 12:15 Bone - Foot Gram Stain - Final 01/27/19 12:15 Bone - Foot Tissue Culture - Preliminary 01/27/19 12:13 Ulcer - Foot Gram Stain - Final 01/27/19 12:13 Ulcer - Foot Gram Stain - Final 01/27/19 12:13 Ulcer - Foot Anaerobic Culture - Preliminary 01/27/19 12:13 Ulcer - Foot Gram Stain - Final 01/27/19 12:13 Ulcer - Foot Wound Culture - Preliminary 01/27/19 11:00 Foot - Right Gram Stain - Final 01/27/19 11:00 Foot - Right Wound Culture - Preliminary 01/26/19 11:18 Nose MRSA (PCR) - Final Medications Active Medications: Acetaminophen (Tylenol) 650 mg PO Q6HP PRN; Protocol PRN Reason: Per Pain Protocol/Fever > 101 Last Admin: 01/27/19 01:55 Dose: 650 mg Documented by: Admin: 01/26/19 19:58 Dose: 650 mg Documented by: LIZZY Hydrocodone Bitart/Acetaminophen ([place] 10/325mg) 1 - 2 tab PO Q4H PRN; Protocol PRN Reason: Pain Last Admin: 01/28/19 15:25 Dose: 1 tab Documented by: Admin: 01/28/19 11:55 Dose: 1 tab Documented by: Admin: 01/28/19 04:28 Dose: 1 tab Documented by: Admin: 01/27/19 23:40 Dose: 1 tab Documented by: LIZZY Albuterol Sulfate (Ventolin) 2.5 mg NEB Q2HP PRN PRN Reason: Shortness Of Breath Dextrose (Dextrose 50%) 0 ml IV UD PRN PRN Reason: Hypoglycemia Diagnostic Test (Pha) (Accu-Chek) 1 each FS ACHS [facility] Last Admin: 01/28/19 17:19 Dose: 1 each Documented by: Admin: 01/28/19 11:53 Dose: 1 each Documented by: Admin: 01/28/19 07:53 Dose: 1 each Documented by: Admin: 01/28/19 04:31 Dose: 1 each Documented by: Admin: 01/27/19 22:33 Dose: 1 each Documented by: Admin: 01/27/19 19:56 Dose: 1 each Documented by: Admin: 01/27/19 17:10 Dose: 1 each Documented by: Admin: 01/27/19 10:11 Dose: 1 each Documented by: Admin: 01/27/19 07:42 Dose: 1 each Documented by: Admin: 01/26/19 21:38 Dose: Not Given Documented by: LIZZY Non-Admin Reason: Duplicate Admin: 01/26/19 19:57 Dose: 1 each Documented by: LIZZY Docusate Sodium (Colace) 100 mg PO BID [facility] Last Admin: 01/28/19 09:24 Dose: 100 mg Documented by: Admin: 01/27/19 20:08 Dose: Not Given Documented by: LIZZY Non-Admin Reason: Patient Refused Admin: 01/27/19 10:11 Dose: Not Given Documented by: ELVIN Non-Admin Reason: Patient Refused Admin: 01/26/19 21:56 Dose: Not Given Documented by: LIZZY Non-Admin Reason: Patient Refused Enalaprilat (Vasotec) 0 mg IV Q2HP PRN PRN Reason: Hypertension Last Admin: 01/27/19 04:32 Dose: 0.625 mg Documented by: LIZZY Glucose (Insta-Glucose) 15 gm PO PRN PRN PRN Reason: Hypoglycemia Heparin Sodium (Porcine) (Heparin) 5,000 unit SQ Q12 [facility] Last Admin: 01/28/19 09:24 Dose: 5,000 unit Documented by: Admin: 01/27/19 20:07 Dose: 5,000 unit Documented by: Admin: 01/27/19 10:10 Dose: Not Given Documented by: ELVIN Non-Admin Reason: held d/t surgery Admin: 01/26/19 21:49 Dose: 5,000 unit Documented by: LIZZY Hydromorphone HCl (Dilaudid) 0.25 - 0.75 mg IV Q2HP PRN; Protocol PRN Reason: Per Pain Protocol Last Admin: 01/28/19 19:18 Dose: 0.75 mg Documented by: Admin: 01/28/19 14:40 Dose: 0.75 mg Documented by: Admin: 01/28/19 07:39 Dose: 0.75 mg Documented by: FER Comments: Insulin Glargine (Lantus) 30 unit SQ BID [facility] Last Admin: 01/28/19 08:16 Dose: 30 mg Documented by: FER Insulin Human Lispro (Humalog) 0 unit SQ ACHS [facility]; Protocol Last Admin: 01/28/19 17:34 Dose: 12 unit Documented by: Admin: 01/28/19 12:21 Dose: 9 unit Documented by: Admin: 01/28/19 08:02 Dose: 9 unit Documented by: Admin: 01/28/19 04:47 Dose: 9 unit Documented by: Admin: 01/27/19 22:40 Dose: 12 unit Documented by: Admin: 01/27/19 20:07 Dose: 18 unit Documented by: Admin: 01/27/19 17:19 Dose: 15 unit Documented by: Admin: 01/27/19 11:01 Dose: 12 unit Documented by: Admin: 01/27/19 08:14 Dose: 15 unit Documented by: Admin: 01/26/19 21:38 Dose: Not Given Documented by: LIZZY Non-Admin Reason: Duplicate Admin: 01/26/19 19:57 Dose: 12 unit Documented by: LIZZY Labetalol HCl (Trandate) 0 mg IV Q2HP PRN PRN Reason: Hypertension Linezolid (Zyvox) 600 mg PO Q12 [facility]; Protocol Last Admin: 01/28/19 09:24 Dose: 600 mg Documented by: Admin: 01/27/19 20:06 Dose: 600 mg Documented by: LIZZY Lorazepam (Ativan) 0.5 mg PO Q6HP PRN PRN Reason: ANXIETY/SEDATION Last Admin: 01/28/19 15:25 Dose: 0.5 mg Documented by: Admin: 01/28/19 09:23 Dose: 0.5 mg Documented by: Admin: 01/27/19 21:18 Dose: 0.5 mg Documented by: Admin: 01/27/19 15:09 Dose: 0.5 mg Documented by: Admin: 01/26/19 19:58 Dose: 0.5 mg Documented by: LIZZY Magnesium Hydroxide (Milk Of Magnesia) 30 ml PO DAILYP PRN PRN Reason: Constipation Metformin HCl (Glucophage) 1,000 mg PO BIDCC [facility] Last Admin: 01/28/19 17:39 Dose: 1,000 mg Documented by: Admin: 01/28/19 08:01 Dose: 1,000 mg Documented by: Admin: 01/27/19 17:20 Dose: 1,000 mg Documented by: Admin: 01/27/19 08:20 Dose: 1,000 mg Documented by: ELVIN Morphine Sulfate (Morphine) 15 mg PO Q6HP PRN; Protocol PRN Reason: Pain Last Admin: 01/27/19 23:10 Dose: 15 mg Documented by: Admin: 01/27/19 17:46 Dose: 15 mg Documented by: ELVIN Ondansetron HCl (Zofran) 4 mg IV Q6HP PRN PRN Reason: Nausea And Vomiting Senna (Senokot) 2 tab PO HS [facility] Last Admin: 01/27/19 20:08 Dose: Not Given Documented by: LIZZY Non-Admin Reason: Patient Refused Admin: 01/26/19 21:56 Dose: Not Given Documented by: LIZZY Non-Admin Reason: Patient Refused Sodium Chloride (Saline Flush) 10 ml IV Q8 [facility] Last Admin: 01/28/19 14:42 Dose: 10 ml Documented by: Admin: 01/28/19 06:58 Dose: Not Given Documented by: LIZZY Non-Admin Reason: Duplicate Admin: 01/27/19 20:09 Dose: 10 ml Documented by: Admin: 01/27/19 14:40 Dose: 10 ml Documented by: Admin: 01/27/19 04:32 Dose: Not Given Documented by: LIZZY Non-Admin Reason: Continuous IV Admin: 01/26/19 22:03 Dose: 10 ml Documented by: RBLEW Assessment and Plan - Narrative A/P Narrative: A: 1. Rt 5th metatarsal osteomyelitis and right 5th MTP septic arthritis: s/p surgical debridement and partial amputation of fifth metatarsal with incision and drainage, POD 1 - mechanism: contiguous focus - risk factors: DM2, peripheral neuropathy, continued weight bearing - no sepsis 2. Screening for MRSA: nasal PCR neg Recommendations: - continue PO Linezolid 600 mg q12 hrs , day 1 - await operative and superficial tissue Cx. will modify treatment based on ID and sensi - anticipate 6 weeks of antibiotics will follow Holger Rogers MD Infectious diseases
[2019-01-28] MEDS: SENNOSIDES 1 TABLET PO SCH (20:31)
[2019-01-28] MEDS: morphine 15 MG TABLET PO PRN (22:39)
[2019-01-29] MEDS: HYDROmorphone 2 MG/ML VIAL IV PRN ×2 (02:01→06:23)
[2019-01-29] MEDS: HYDROcodone/APAP 10/325MG TABLET PO PRN ×4 (04:01→21:02)
[2019-01-29] MEDS: 0.9 % SODIUM CHLORIDE 10 ML SYRINGE IV SCH ×3 (06:11→21:03)
[2019-01-29] MEDS: INSULIN LISPRO 1 UNIT/0.01 ML UNIT SQ SCH ×4 (07:12→21:02)
[2019-01-29] MEDS: metFORMIN 500 MG TABLET PO SCH ×2 (07:55→16:58)
--- NOTE | 2019-01-29 08:20 | Internal Med Progress Note ---
Medical - PN: Subj Patient information: Note initiated : 01/29/19 at 8:14 am Service Date, if different from initiated Date: [] Patient: Rivera Major 53 y/o M admitted on 01/26/19 for Foot Ulcer. Chief Complaint: [] Interval history: Mr. Major is a 53 year old M 53-year-old male who sent in by Dr. French and Dr. Vides and has been undergoing IV antibiotics for a diabetic right foot ulcer with no improvement, and has been following with wound care. He has been on IV vancomycin for at least the past 5 days. He was sent in for failure of outpatient therapy and likely needing surgical debridement. Patient states over the past few days is also increased in redness and swelling. His blood glucose is 260. He says his blood sugars typically run between 100- 180 however his A1c outpatient was 14. Blood pressure was elevated in the ED however patient states it is typically 140-150. He says it is draining some clear fluid. He first noticed the wound about 5 weeks ago when he was walking on his floor noticed blood from his foot. In the ED foot x-ray showed osteo-of the head of the fifth metatarsal and infection in the joint. Dr. vides discussed the case with Dr. Pantoja and also request ID consultation. She feels a little chills but no fever. No other pains or complaints but is quite anxious and worried about his foot. 01/27 Able to sleep okay last night. Feeling better and less anxious today. Feels his right foot swelling is improved as well as redness. Pressure better controlled today. No new complaints. 01/28 Pain increased last night better controlled with PRN IV medication. Patient anxious at times. Blood glucose elevated and increasing Lantus. Occasional headache 01/29 And a little better. Less anxious. Using the as needed Ativan several times a day. Preliminary cultures unremarkable so far. Blood pressure much improved and blood glucose improving. Continue to titrate up basal insulin. Review of Systems: denies fever/chills/nausea/vomiting/chest or abdominal pain/cough/dyspnea/diarrhea. Otherwise see above. - Constitutional Vitals: Vital Signs Temp Pulse Resp BP Pulse Ox 97 F 74 18 140/92 96 01/29/19 03:54 01/29/19 03:54 01/29/19 03:54 01/29/19 03:54 01/29/19 03:54 Period Temp Pulse Resp BP Sys/Fernandez Pulse Ox Last 24 Hr 97 F-98.0 F 74-82 16-20 118-157/70-96 92-96 Intake and Output 01/28/19 01/29/19 01/29/19 21:59 05:59 13:59 Intake Total 1840 600 Output Total 500 Balance 1840 100 Weight 153.768 kg Intake & Output: Intake & Output 01/28/19 01/29/19 01/29/19 21:59 05:59 13:59 Intake Total 1840 600 Output Total 500 Balance 1840 100 Weight 153.768 kg Intake: Oral 1840 600 Output: Void Amount 500 Other: Meal Dinner Percent of Meal Consumed 95 Urine Appearance Clear Urine Color Bright Yellow Stool Size Moderate Stool Color Brown Stool Consistency Soft # Bowel Movements 1 Exam: General: Alert, Awake, No acute Distress, obese Eyes/N/T: EOMI, Head/Neck: neck supple, CV: RRR, No murmurs, Pulm: Clear b/l, no wheezing/rhonchi/rales Abd: soft, nontender, +BS x4 Ext: no clubbing/cyanosis/edema LLE. Right foot/ankle with dressings intact Neuro: Alert, no focal deficits, moves all extremities, Skin: warm/dry Medical - PN: Obj Da - Labs CBC & Chem 7: 01/27/19 05:12 01/28/19 05:16 Labs: Abnormal Lab Results 01/28/19 01/28/19 01/27/19 05:16 05:16 10:47 Lymph % (Auto) Cassia % (Auto) Lymph # (Auto) ESR Sodium Chloride Glucose 245 H Hemoglobin A1c C-Reactive Protein 4.5 H Urine Glucose (UA) >=500 A 01/27/19 01/27/19 01/27/19 10:15 05:12 05:12 Lymph % (Auto) Cassia % (Auto) 13.0 H Lymph # (Auto) 1.2 L ESR Sodium Chloride Glucose 344 H Hemoglobin A1c 13.6 H C-Reactive Protein Urine Glucose (UA) 01/26/19 01/26/19 01/26/19 14:37 14:37 14:37 Lymph % (Auto) Cassia % (Auto) Lymph # (Auto) ESR 55 H Sodium 132 L Chloride 94 L Glucose 260 H Hemoglobin A1c C-Reactive Protein 5.5 H Urine Glucose (UA) 01/26/19 14:37 Lymph % (Auto) 13.0 L Cassia % (Auto) Lymph # (Auto) 1.1 L ESR Sodium Chloride Glucose Hemoglobin A1c C-Reactive Protein Urine Glucose (UA) Meds: Medications Acetaminophen (Tylenol) 650 mg PO Q6HP PRN; Protocol PRN Reason: Per Pain Protocol/Fever > 101 Last Admin: 01/27/19 01:55 Dose: 650 mg Documented by: Hydrocodone Bitart/Acetaminophen ([place] 10/325mg) 1 - 2 tab PO Q4H PRN; Protocol PRN Reason: Pain Last Admin: 01/29/19 04:01 Dose: 1 tab Documented by: Albuterol Sulfate (Ventolin) 2.5 mg NEB Q2HP PRN PRN Reason: Shortness Of Breath Dextrose (Dextrose 50%) 0 ml IV UD PRN PRN Reason: Hypoglycemia Diagnostic Test (Pha) (Accu-Chek) 1 each FS [facility] Last Admin: 01/29/19 07:09 Dose: 1 each Documented by: Docusate Sodium (Colace) 100 mg PO BID [facility] Last Admin: 01/28/19 20:30 Dose: Not Given Documented by: Enalaprilat (Vasotec) 0 mg IV Q2HP PRN PRN Reason: Hypertension Last Admin: 01/27/19 04:32 Dose: 0.625 mg Documented by: Glucose (Insta-Glucose) 15 gm PO PRN PRN PRN Reason: Hypoglycemia Heparin Sodium (Porcine) (Heparin) 5,000 unit SQ Q12 [facility] Last Admin: 01/28/19 20:30 Dose: 5,000 unit Documented by: Hydromorphone HCl (Dilaudid) 0.25 - 0.75 mg IV Q2HP PRN; Protocol PRN Reason: Per Pain Protocol Last Admin: 01/29/19 06:23 Dose: 0.75 mg Documented by: Insulin Glargine (Lantus) 30 unit SQ BID [facility] Last Admin: 01/28/19 20:30 Dose: 30 unit Documented by: Insulin Human Lispro (Humalog) 0 unit SQ [facility]; Protocol Last Admin: 01/29/19 07:12 Dose: Not Given Documented by: Labetalol HCl (Trandate) 0 mg IV Q2HP PRN PRN Reason: Hypertension Linezolid (Zyvox) 600 mg PO Q12 [facility]; Protocol Last Admin: 01/28/19 20:31 Dose: 600 mg Documented by: Lorazepam (Ativan) 0.5 mg PO Q6HP PRN PRN Reason: ANXIETY/SEDATION Last Admin: 01/28/19 21:35 Dose: 0.5 mg Documented by: Magnesium Hydroxide (Milk Of Magnesia) 30 ml PO DAILYP PRN PRN Reason: Constipation Metformin HCl (Glucophage) 1,000 mg PO BIDCC [facility] Last Admin: 01/29/19 07:55 Dose: 1,000 mg Documented by: Morphine Sulfate (Morphine) 15 mg PO Q6HP PRN; Protocol PRN Reason: Pain Last Admin: 01/28/19 22:39 Dose: 15 mg Documented by: Ondansetron HCl (Zofran) 4 mg IV Q6HP PRN PRN Reason: Nausea And Vomiting Senna (Senokot) 2 tab PO HS [facility] Last Admin: 01/28/19 20:31 Dose: Not Given Documented by: Sodium Chloride (Saline Flush) 10 ml IV Q8 [facility] Last Admin: 01/29/19 06:11 Dose: 10 ml Documented by: Medical - PN: A/P - Time Spent With Patient Total time spent is greater than 50% in coordination of care (as documented) at patient's floor/unit and/or counseling patient: - Narrative A/P Narrative: A: *Right Foot nonhealing diabetic foot ulcer w/surrounding cellulitis & Osteo (5th Metatarsal): failed outpt IV Abx - s/p partial amputation 5th MT w/I&D (01/27) *DM: uncontrolled -A1c 14 -Has been on metformin and recently started lantus 10 bid as well as humalog *HTN: better controlled, 2/2 pain, no prn's given o/n *Anxiety: *Obesity P: -Dr. Vides/Kit following -ID following, on zyvox -pending BC & surgical cx -prn BP meds, monitor BP -prn ativan -cont metformin and lantus(titrate up), SSI -DM education referral -ppx: lovenox
--- NOTE | 2019-01-29 09:30 | General Surgery Progress Note ---
Subjective Patient reports: no new complaints, other (Uneventful night. Blood sugars improving. Patient adjusting to NWB on Right foot and Crutch use. Dressing Right foot is CDI) Narrative: Note initiated : 01/29/19 at 9:28 am Service Date, if different from initiated Date: [] Patient: Rivera Major 53 y/o M admitted on 01/26/19 for Foot Ulcer. Chief Complaint: [] Objective Temp Pulse Resp BP Pulse Ox 97.1 F 70 18 160/91 96 01/29/19 08:00 01/29/19 08:00 01/29/19 08:00 01/29/19 08:00 01/29/19 08:00 AVSS. No changes TJ. Dressings Right foot CDI Toes PWD. Right leg edema is less Labs reviewed - Additional Data Intake & Output - Last 24 hours: Intake & Output 01/27/19 01/28/19 01/29/19 01/30/19 05:59 05:59 05:59 05:59 Intake Total 3260 4694 2440 Output Total 4800 1275 500 Balance -1540 3419 1940 Weight 338 lb 8 oz 339 lb 4.8 oz 339 lb - Labs 01/27/19 05:12 01/28/19 05:16 Assessment and Plan (1) Cellulitis Status: Acute Current Visit: Yes (2) Diabetic foot infection Status: Acute Current Visit: Yes (3) Osteomyelitis Status: Acute Current Visit: Yes (4) Septic arthritis Problem details: INFECTED neuropathic traumatic and pressure ulcer RIGHT lateral foot with cellulitis. Acute osteomyelitis of 5th toe MPJ. Patient referred to Dr. ALESSANDRA SQUIRES, [employer]hib[employer] Curator for surgery / debridement. I will be follwo ing htis patietnfrom wound care point of view. Status: Acute Current Visit: Yes - Narrative A/P Narrative: Assessment: Satisfactory post op progress. Plan: Continue present treatment. For change of dressing on 01/31/2019 Anticipate d/c after w/e Out patient f/u to arranged later. Dilia/W Shon LUCIANO and Dr. taveras. - Time Spent With Patient Total time spent is greater than 50% in coordination of care (as documented) at patient's floor/unit and/or counseling patient: 15 - 24 minutes
[2019-01-29] MEDS: ENOXAPARIN 60 MG/0.6 ML SYRINGE SQ SCH (09:39)
[2019-01-29] MEDS: INSULIN GLARGINE, HUMAN 1 UNIT/0.01 ML SQ SCH ×2 (09:40→21:02)
[2019-01-29] MEDS: DOCUSATE SODIUM 100 MG CAPSULE PO SCH ×2 (09:41→21:03)
[2019-01-29] MEDS: LINEZOLID 600 MG TABLET PO SCH ×2 (09:41→21:01)
[2019-01-29] MEDS: LORazepam 0.5 MG TABLET PO PRN (21:02)
[2019-01-29] MEDS: SENNOSIDES 1 TABLET PO SCH (21:03)
[2019-01-30] MEDS: HYDROcodone/APAP 10/325MG TABLET PO PRN ×6 (02:51→22:03)
[2019-01-30] MEDS: 0.9 % SODIUM CHLORIDE 10 ML SYRINGE IV SCH ×3 (05:40→21:09)
[2019-01-30] MEDS: metFORMIN 500 MG TABLET PO SCH ×2 (07:23→17:40)
[2019-01-30] MEDS: INSULIN LISPRO 1 UNIT/0.01 ML UNIT SQ SCH ×4 (07:26→21:06)
[2019-01-30] MEDS ORDERED: 0.9 % SODIUM CHLORIDE 10 ML SYRINGE IV PRN (07:50)
--- NOTE | 2019-01-30 08:13 | Internal Med Progress Note ---
Medical - PN: Subj Patient information: Note initiated : 01/30/19 at 8:11 am Service Date, if different from initiated Date: [] Patient: Rivera Major 53 y/o M admitted on 01/26/19 for Foot Ulcer. Chief Complaint: [] Interval history: Mr. Major is a 53 year old M 53-year-old male who sent in by Dr. French and Dr. Vides and has been undergoing IV antibiotics for a diabetic right foot ulcer with no improvement, and has been following with wound care. He has been on IV vancomycin for at least the past 5 days. He was sent in for failure of outpatient therapy and likely needing surgical debridement. Patient states over the past few days is also increased in redness and swelling. His blood glucose is 260. He says his blood sugars typically run between 100- 180 however his A1c outpatient was 14. Blood pressure was elevated in the ED however patient states it is typically 140-150. He says it is draining some clear fluid. He first noticed the wound about 5 weeks ago when he was walking on his floor noticed blood from his foot. In the ED foot x-ray showed osteo-of the head of the fifth metatarsal and infection in the joint. Dr. vides discussed the case with Dr. Pantoja and also request ID consultation. She feels a little chills but no fever. No other pains or complaints but is quite anxious and worried about his foot. 01/27 Able to sleep okay last night. Feeling better and less anxious today. Feels his right foot swelling is improved as well as redness. Pressure better controlled today. No new complaints. 01/28 Pain increased last night better controlled with PRN IV medication. Patient anxious at times. Blood glucose elevated and increasing Lantus. Occasional headache 01/29 And a little better. Less anxious. Using the as needed Ativan several times a day. Preliminary cultures unremarkable so far. Blood pressure much improved and blood glucose improving. Continue to titrate up basal insulin. 01/30 Feeling better. Slept much better last night. Blood glucose is significantly improved. Patient doing well. No overnight events or new complaints. Review of Systems: denies fever/chills/nausea/vomiting/chest or abdominal pain/cough/dys pnea/diarrhea. Otherwise see above. - Constitutional Vitals: Vital Signs Temp Pulse Resp BP Pulse Ox 98.4 F 74 20 136/96 95 01/30/19 07:03 01/30/19 02:50 01/30/19 07:03 01/30/19 07:03 01/30/19 07:03 Period Temp Pulse Resp BP Sys/Fernandez Pulse Ox Last 24 Hr 97.3 F-98.4 F 65-74 18-20 117-175/70-96 95-97 Intake and Output 01/29/19 01/30/19 01/30/19 21:59 05:59 13:59 Intake Total 800 800 Output Total 3 1400 Balance 797 -600 Weight 153.768 kg Intake & Output: Intake & Output 01/29/19 01/30/19 01/30/19 21:59 05:59 13:59 Intake Total 800 800 Output Total 3 1400 Balance 797 -600 Weight 153.768 kg Intake: Oral 800 800 Output: Void Amount 1400 # of times incontinent of urine 3 Other: Meal Lunch Percent of Meal Consumed 100% Urine Appearance Clear Urine Color Bright Yellow Bright Yellow Exam: General: Alert, Awake, No acute Distress, obese Eyes/N/T: EOMI, Head/Neck: neck supple, CV: RRR, No murmurs, Pulm: Clear b/l, no wheezing/rhonchi/rales Abd: soft, nontender, +BS x4 Ext: no clubbing/cyanosis/edema LLE. Right foot/ankle with dressings intact Neuro: Alert, no focal deficits, moves all extremities, Skin: warm/dry Medical - PN: Obj Da - Labs CBC & Chem 7: 01/27/19 05:12 01/28/19 05:16 Labs: Abnormal Lab Results 01/28/19 01/28/19 01/27/19 05:16 05:16 10:47 Glucose 245 H Hemoglobin A1c C-Reactive Protein 4.5 H Urine Glucose (UA) >=500 A 01/27/19 10:15 Glucose Hemoglobin A1c 13.6 H C-Reactive Protein Urine Glucose (UA) Meds: Medications Acetaminophen (Tylenol) 650 mg PO Q6HP PRN; Protocol PRN Reason: Per Pain Protocol/Fever > 101 Last Admin: 01/27/19 01:55 Dose: 650 mg Documented by: Hydrocodone Bitart/Acetaminophen ([place] 10/325mg) 1 - 2 tab PO Q4H PRN; Protocol PRN Reason: Pain Last Admin: 01/30/19 07:24 Dose: 1 tab Documented by: Albuterol Sulfate (Ventolin) 2.5 mg NEB Q2HP PRN PRN Reason: Shortness Of Breath Dextrose (Dextrose 50%) 0 ml IV UD PRN PRN Reason: Hypoglycemia Diagnostic Test (Pha) (Accu-Chek) 1 each FS [facility] Last Admin: 01/30/19 07:25 Dose: 1 each Documented by: Docusate Sodium (Colace) 100 mg PO BID [facility] Last Admin: 01/29/19 21:03 Dose: Not Given Documented by: Enalaprilat (Vasotec) 0 mg IV Q2HP PRN PRN Reason: Hypertension Last Admin: 01/27/19 04:32 Dose: 0.625 mg Documented by: Enoxaparin Sodium (Lovenox) 60 mg SQ DAILY [facility] Last Admin: 01/29/19 09:39 Dose: 60 mg Documented by: Glucose (Insta-Glucose) 15 gm PO PRN PRN PRN Reason: Hypoglycemia Heparin Sodium (Porcine) (Heparin Flush) 2 ml IV Q12 [facility] Hydromorphone HCl (Dilaudid) 0.25 - 0.75 mg IV Q2HP PRN; Protocol PRN Reason: Per Pain Protocol Last Admin: 01/29/19 06:23 Dose: 0.75 mg Documented by: Insulin Glargine (Lantus) 45 unit SQ BID [facility] Last Admin: 01/29/19 21:02 Dose: 45 unit Documented by: Insulin Human Lispro (Humalog) 0 unit SQ [facility]; Protocol Last Admin: 01/30/19 07:26 Dose: Not Given Documented by: Labetalol HCl (Trandate) 0 mg IV Q2HP PRN PRN Reason: Hypertension Linezolid (Zyvox) 600 mg PO Q12 [facility]; Protocol Last Admin: 01/29/19 21:01 Dose: 600 mg Documented by: Lorazepam (Ativan) 0.5 mg PO Q6HP PRN PRN Reason: ANXIETY/SEDATION Last Admin: 01/29/19 21:02 Dose: 0.5 mg Documented by: Magnesium Hydroxide (Milk Of Magnesia) 30 ml PO DAILYP PRN PRN Reason: Constipation [facility] Last Admin: 11/24/19 07:23 Dose: 1,000 mg Documented by: Morphine Sulfate (Morphine) 15 mg PO Q6HP PRN; Protocol PRN Reason: Pain Last Admin: 01/28/19 22:39 Dose: 15 mg Documented by: Ondansetron HCl (Zofran) 4 mg IV Q6HP PRN PRN Reason: Nausea And Vomiting Senna (Senokot) 2 tab PO HS [facility] Last Admin: 01/29/19 21:03 Dose: Not Given Documented by: Sodium Chloride (Saline Flush) 10 ml IV Q8 [facility] Last Admin: 01/30/19 05:40 Dose: 10 ml Documented by: Sodium Chloride (Saline Flush) 10 ml IV UD PRN PRN Reason: FLUSH Medical - PN: A/P - Time Spent With Patient Total time spent is greater than 50% in coordination of care (as documented) at patient's floor/unit and/or counseling patient: - Narrative A/P Narrative: A: *Right Foot nonhealing diabetic foot ulcer w/surrounding cellulitis & Osteo (5th Metatarsal): failed outpt IV Abx - 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 Vides/Kit following -ID following, on zyvox -prn BP meds, monitor BP -prn ativan -cont metformin and lantus(currently up to 45 bid), SSI -DM education referral -likely d/c in AM -ppx: lovenox
[2019-01-30] MEDS: INSULIN GLARGINE, HUMAN 1 UNIT/0.01 ML SQ SCH ×2 (08:55→21:05)
[2019-01-30] MEDS: ENOXAPARIN 60 MG/0.6 ML SYRINGE SQ SCH (08:55)
[2019-01-30] MEDS: LINEZOLID 600 MG TABLET PO SCH ×2 (08:59→21:06)
[2019-01-30] MEDS: DOCUSATE SODIUM 100 MG CAPSULE PO SCH ×2 (08:59→21:07)
--- NOTE | 2019-01-30 11:11 | Discharge Summary ---
Medical - DS: Prov Patient information: Note initiated : 01/30/19 at 11:06 am Service Date, if different from initiated Date: [] Patient: Rivera Major 53 y/o M admitted on 01/26/19 for Foot Ulcer. Chief Complaint: [] Date of admission: 01/26/19 17:40 Discharge date: 01/31/19 Primary care physician: Maulik French Consults: 01/26/19 Consult to Physician [CONS] Stat Comment: Consulting Provider: Monster Vides Reason For Exam: Physician to Consult Consult to Physician [CONS] Stat Comment: Consulting Provider: Brayden Rios Reason For Exam: Physician to Consult 01/26/19 18:37 Consult to Physician [CONS] Routine Comment: Consulting Provider: Carl Pantoja Reason For Exam: Physician to Consult Consult to Physician [CONS] Routine Comment: Consulting Provider: Holger Rogers Reason For Exam: Physician to Consult Medical - DS: Meds - Discharge Medications Bad tableActive and Home Medications: Home Medications LORazepam [Ativan] 2 mg PO HSP PRN 12/05/14 [History Confirmed 01/26/19 Last Taken 12/06/14 21:00] Multivitamin [Once Daily] 1 tab PO DAILY 12/05/14 [History Confirmed 01/26/19 Last Taken 01/26/19 09:00] Iona-3 Fatty Acids/Fish Oil [Iona 3 Fish Oil Softgel] 1 cap PO DAILY 12/05/14 [History Confirmed 01/26/19 Last Taken 07/07/17] Vitamin D3 1,000 unit PO DAILY 12/05/14 [History Confirmed 01/26/19 Last Taken 01/07/17] metFORMIN [Glucophage] 1,000 mg PO BIDCC 12/05/14 [History Confirmed 01/26/19 Last Taken 01/26/19 09:00] morphine 15 mg PO Q6HP PRN 12/05/14 [History Confirmed 01/26/19 Last Taken 12/02/14] HYDROcodone/APAP 10/325MG [Cameron 10/325Mg] 1 - 2 tab PO Q4H PRN #60 tablet 12/10/14 [Rx Confirmed 01/26/19 Last Taken 03/09/14] Lantus Solostar 10 unit SQ BID 01/26/19 [History Confirmed 01/26/19 Last Taken 01/26/19 09:00] Home Medications LORazepam [Ativan] 2 mg PO HSP PRN 12/05/14 [History Confirmed 01/26/19 Last Taken 12/06/14 21:00] Multivitamin [Once Daily] 1 tab PO DAILY 12/05/14 [History Confirmed 01/26/19 Last Taken 01/26/19 09:00] Iona-3 Fatty Acids/Fish Oil [Iona 3 Fish Oil Softgel] 1 cap PO DAILY 12/05/14 [History Confirmed 01/26/19 Last Taken 07/07/17] Vitamin D3 1,000 unit PO DAILY 12/05/14 [History Confirmed 01/26/19 Last Taken 01/07/17] metFORMIN [Glucophage] 1,000 mg PO BIDCC 12/05/14 [History Confirmed 01/26/19 Last Taken 01/26/19 09:00] morphine 15 mg PO Q6HP PRN 12/05/14 [History Confirmed 01/26/19 Last Taken 12/02/14] HYDROcodone/APAP 10/325MG [Cameron 10-325Mg] 1 - 2 tab PO Q4H PRN #60 tablet 12/10/14 [Rx Confirmed 01/26/19 Last Taken 03/09/14] Blood Sugar Diagnostic [Advanced Glucose Test Strip] 1 each MC BID #90 strip 01/30/19 [Rx Last Taken Unknown] Lancets [Advocate Lancets] 1 each MC BID #90 each 01/30/19 [Rx Last Taken Unknown] Lantus Solostar 45 unit SQ BID #1 01/30/19 [Rx Last Taken Unknown] Medical - DS: Hosp Hospital Course: Mr. Major is a 53 year old M 53-year-old male who sent in by Dr. French and Dr. Vides and has been undergoing IV antibiotics for a diabetic right foot ulcer with no improvement, and has been following with wound care. He has been on IV vancomycin for at least the past 5 days. He was sent in for failure of outpatient therapy and likely needing surgical debridement. Patient states over the past few days is also increased in redness and swelling. His blood glucose is 260. He says his blood sugars typically run between 100- 180 however his A1c outpatient was 14. Blood pressure was elevated in the ED however patient states it is typically 140-150. He says it is draining some clear fluid. He first noticed the wound about 5 weeks ago when he was walking on his floor noticed blood from his foot. In the ED foot x-ray showed osteo-of the head of the fifth metatarsal and infection in the joint. Dr. vides discussed the case with Dr. Pantoja and also request ID consultation. She feels a little chills but no fever. No other pains or complaints but is quite anxious and worried about his foot. 01/27 Able to sleep okay last night. Feeling better and less anxious today. Feels his right foot swelling is improved as well as redness. Pressure better controlled today. No new complaints. 01/28 Pain increased last night better controlled with PRN IV medication. Patient anxious at times. Blood glucose elevated and increasing Lantus. Occasional headache 01/29 And a little better. Less anxious. Using the as needed Ativan several times a day. Preliminary cultures unremarkable so far. Blood pressure much improved and blood glucose improving. Continue to titrate up basal insulin. 01/30 Feeling better. Slept much better last night. Blood glucose is significantly improved. Patient doing well. No overnight events or new complaints. 01/31 Well. Glucose much better controlled. Patient well and stable for discharge. Final antibiotic regimen per Dr. Rogers is linezolid and rifampin. Discharge diagnosis: Diabetic foot ulcer with cellulitis and osteomyelitis Secondary discharge diagnosis: Diabetes hypertension anxiety obesity - Time Spent with Patient Total time spent providing and/or coordinating discharge services: Greater than 30 minutes Medical - DS: Exam - Constitutional Vitals: Vital Signs Temp Pulse Resp BP Pulse Ox 01/30/19 07:03 98.4 F 20 136/96 95 01/30/19 02:50 97.3 F 74 18 142/93 95 01/29/19 23:31 97.6 F 65 18 117/70 97 01/29/19 19:17 97.8 F 68 18 126/78 96 01/29/19 16:00 98.1 F 72 18 175/91 95 01/29/19 12:00 98.1 F 74 18 163/89 95 Intake and Output 01/29/19 01/30/19 01/30/19 21:59 05:59 13:59 Intake Total 800 800 Output Total 3 1400 Balance 797 -600 Intake: Oral 800 800 Output: Void Amount 1400 # of times incontinent of urine 3 Other: Meal Lunch Percent of Meal Consumed 100% Urine Appearance Clear Urine Color Bright Yellow Bright Yellow Weight 153.768 kg Medical - DS: Data Labs on day of discharge: Preliminary micro results at discharge 01/26/19 15:12 Blood Culture - Preliminary Blood 01/26/19 14:37 Blood Culture - Preliminary Blood 01/27/19 12:15 Anaerobic Culture - Preliminary Bone - Foot 01/27/19 12:13 Anaerobic Culture - Preliminary Ulcer - Foot 01/27/19 11:00 Wound Culture - Preliminary Foot - Right Medical - DS: A/P - Patient/Caregiver Discharge Instructions Activity: as per physical therapy Diet: Consistent Carbohydrate Bad tableOther Amb Orders: [place] Location: None Selected - Follow up Plan Follow up with: Maulik French DO [Primary Care Provider] - Monster Vides MD [Physician] - Carl Pantoja DPM [Physician] - Holger Rogers MD [Physician] - Disposition: Home, Self-Care Prognosis: Good Rehab Potential: Good Overall status at discharge: patient is progressing back to baseline
[2019-01-30] MEDS: LORazepam 0.5 MG TABLET PO PRN ×2 (16:45→18:37)
[2019-01-30] MEDS: SENNOSIDES 1 TABLET PO SCH (21:09)
[2019-01-31] MEDS: ACETAMINOPHEN 325 MG TABLET PO PRN (00:18)
[2019-01-31] MEDS: HYDROcodone/APAP 10/325MG TABLET PO PRN ×3 (01:45→10:19)
[2019-01-31] MEDS: LORazepam 0.5 MG TABLET PO PRN (01:46)
[2019-01-31] MEDS: 0.9 % SODIUM CHLORIDE 10 ML SYRINGE IV SCH (05:32)
[2019-01-31] MEDS: INSULIN LISPRO 1 UNIT/0.01 ML UNIT SQ SCH ×2 (07:18→11:45)
[2019-01-31] MEDS: ENOXAPARIN 60 MG/0.6 ML SYRINGE SQ SCH (08:22)
[2019-01-31] MEDS: LINEZOLID 600 MG TABLET PO SCH (08:23)
[2019-01-31] MEDS: INSULIN GLARGINE, HUMAN 1 UNIT/0.01 ML SQ SCH (08:23)
[2019-01-31] MEDS: metFORMIN 500 MG TABLET PO SCH (08:23)
[2019-01-31] MEDS: DOCUSATE SODIUM 100 MG CAPSULE PO SCH (08:24)
--- NOTE | 2019-01-31 10:02 | Infectious Disease Prog Note ---
Subjective Patient information: Note initiated : 01/31/19 at 9:50 am Service Date, if different from initiated Date: [] Patient: Rivera Major 53 y/o M admitted on 01/26/19 for Foot Ulcer. Chief Complaint: [] Interval history: Pt doing fine overall. Denied any fever, chills, n/v, diarrhea. Discussed negative Cx results, plans for removal of PICC line, discharge with PO antibiotics. Shared info about antibiotic pricing, cheapest rates in the local pharmacies. Spoke with Katlyn who would provide [employer] cards to the patient. Objective Objective Narrative: ao x 3, in nad no tthrush bs ++, nttd Rt foot: the surgical site (2 ulcers; one on the plantar aspect and other on the lateral aspect] looks clean with bright red granulation tissue. No pus drainage. +ve redness, swelling around the wound. Rt DP is palpable, good volume Rt leg: swelling, redness in lower 1/3 has completely resolved. The skin pigmentation still remains - Vital Signs Vital signs: Vital Signs Temp Pulse Resp BP BP Pulse Ox 01/31/19 08:00 36.4 C 58 L 18 151/96 97 01/31/19 04:00 36.8 C 18 155/110 97 01/30/19 23:31 36.6 C 83 14 154/93 98 01/30/19 18:27 36.8 C 88 14 152/93 93 01/30/19 15:58 36.8 C 20 154/100 94 01/30/19 12:00 37.0 C 20 167/98 94 Intake and Output 01/30/19 01/31/19 01/31/19 21:59 05:59 13:59 Intake Total 500 1000 Balance 500 1000 Intake: Oral 500 1000 Other: Meal Dinner Nourishment/Supplement Percent of Meal Consumed 100% 100% Feeding Ability Independent Urine Appearance Clear Clear Urine Color Bright Yellow Stool Color Brown Stool Consistency Formed Loose # Voids 3 # Bowel Movements 1 Weight 153.456 kg Intake & Output: Intake & Output 01/30/19 01/31/19 01/31/19 21:59 05:59 13:59 Intake Total 500 1000 Balance 500 1000 Weight 153.456 kg Intake: Oral 500 1000 Other: Meal Dinner Nourishment/Supplement Percent of Meal Consumed 100% 100% Feeding Ability Independent Urine Appearance Clear Clear Urine Color Bright Yellow Stool Color Brown Stool Consistency Formed Loose # Voids 3 # Bowel Movements 1 - Lab 01/27/19 05:12 01/28/19 05:16 Most recent lab results Calcium 9.6 mg/dl (8.6-10.4) 01/28/19 05:16 Phosphorus 4.2 mg/dL (2.7-4.5) 01/27/19 05:12 Magnesium 1.6 mg/dL (1.6-2.5) 01/27/19 05:12 Microbiology 01/26/19 15:12 Blood Blood Culture - Preliminary 01/26/19 14:37 Blood Blood Culture - Preliminary 01/27/19 11:00 Foot - Right Gram Stain - Final 01/27/19 11:00 Foot - Right Wound Culture - Final 01/27/19 12:13 Ulcer - Foot Gram Stain - Final 01/27/19 12:13 Ulcer - Foot Gram Stain - Final 01/27/19 12:13 Ulcer - Foot Anaerobic Culture - Preliminary 01/27/19 12:13 Ulcer - Foot Gram Stain - Final 01/27/19 12:13 Ulcer - Foot Wound Culture - Final 01/27/19 12:15 Bone - Foot Gram Stain - Final 01/27/19 12:15 Bone - Foot Gram Stain - Final 01/27/19 12:15 Bone - Foot Anaerobic Culture - Preliminary 01/27/19 12:15 Bone - Foot Gram Stain - Final 01/27/19 12:15 Bone - Foot Tissue Culture - Final 01/26/19 11:18 Nose MRSA (PCR) - Final Medications Active Medications: Acetaminophen (Tylenol) 650 mg PO Q6HP PRN; Protocol PRN Reason: Per Pain Protocol/Fever > 101 Last Admin: 01/31/19 00:18 Dose: 650 mg Documented by: [email or web address] Admin: 01/27/19 01:55 Dose: 650 mg Documented by: Admin: 01/26/19 19:58 Dose: 650 mg Documented by: LIZZY Hydrocodone Bitart/Acetaminophen (Prather 10/325mg) 1 - 2 tab PO Q4H PRN; Protocol PRN Reason: Pain Last Admin: 01/31/19 07:12 Dose: 1 tab Documented by: Admin: 01/31/19 01:45 Dose: 2 tab Documented by: Admin: 01/30/19 22:03 Dose: 2 tab Documented by: Admin: 01/30/19 17:35 Dose: 2 tab Documented by: Admin: 01/30/19 13:46 Dose: 1 tab Documented by: FER Comments: pt can have 1 to 2 and has only had one the first two administ rations today. Admin: 01/30/19 11:27 Dose: 1 tab Documented by: Admin: 01/30/19 07:24 Dose: 1 tab Documented by: Admin: 01/30/19 02:51 Dose: 2 tab Documented by: Admin: 01/29/19 21:02 Dose: 2 tab Documented by: Admin: 01/29/19 14:46 Dose: 2 tab Documented by: Admin: 01/29/19 09:40 Dose: 2 tab Documented by: Admin: 01/29/19 04:01 Dose: 1 tab Documented by: Admin: 01/28/19 21:34 Dose: 1 tab Documented by: Admin: 01/28/19 20:39 Dose: 1 tab Documented by: Admin: 01/28/19 15:25 Dose: 1 tab Documented by: Admin: 01/28/19 11:55 Dose: 1 tab Documented by: Admin: 01/28/19 04:28 Dose: 1 tab Documented by: Admin: 01/27/19 23:40 Dose: 1 tab Documented by: LIZZY Albuterol Sulfate (Ventolin) 2.5 mg NEB Q2HP PRN PRN Reason: Shortness Of Breath Dextrose (Dextrose 50%) 0 ml IV UD PRN PRN Reason: Hypoglycemia Diagnostic Test (Pha) (Accu-Chek) 1 each FS ACHS [facility] Last Admin: 01/31/19 07:16 Dose: 1 each Documented by: Admin: 01/30/19 21:08 Dose: 1 each Documented by: Admin: 01/30/19 17:01 Dose: 1 each Documented by: Admin: 01/30/19 11:15 Dose: 1 each Documented by: Admin: 01/30/19 07:25 Dose: 1 each Documented by: Admin: 01/29/19 21:03 Dose: 1 each Documented by: Admin: 01/29/19 17:02 Dose: 1 each Documented by: Admin: 01/29/19 12:33 Dose: 1 each Documented by: Admin: 01/29/19 07:09 Dose: 1 each Documented by: Admin: 01/28/19 20:30 Dose: 1 each Documented by: Admin: 01/28/19 17:19 Dose: 1 each Documented by: Admin: 01/28/19 11:53 Dose: 1 each Documented by: Admin: 01/28/19 07:53 Dose: 1 each Documented by: Admin: 01/28/19 04:31 Dose: 1 each Documented by: Admin: 01/27/19 22:33 Dose: 1 each Documented by: Admin: 01/27/19 19:56 Dose: 1 each Documented by: Admin: 01/27/19 17:10 Dose: 1 each Documented by: Admin: 01/27/19 10:11 Dose: 1 each Documented by: Admin: 01/27/19 07:42 Dose: 1 each Documented by: Admin: 01/26/19 21:38 Dose: Not Given Documented by: LIZZY Non-Admin Reason: Duplicate Admin: 01/26/19 19:57 Dose: 1 each Documented by: LIZZY Docusate Sodium (Colace) 100 mg PO BID [facility] Admin: 01/31/19 08:24 Dose: Not Given Documented by: MONO Non-Admin Reason: Patient Refused Admin: 01/30/19 21:07 Dose: Not Given Documented by: LETHA Non-Kelsey Reason: Patient Refused Admin: 01/30/19 08:59 Dose: 100 mg Documented by: Admin: 01/29/19 21:03 Dose: Not Given Documented by: LETHA Non-Admin Reason: Patient Refused Admin: 01/29/19 09:41 Dose: 100 mg Documented by: Admin: 01/28/19 20:30 Dose: Not Given Documented by: LETHA Non-Admin Reason: Patient Refused Admin: 01/28/19 09:24 Dose: 100 mg Documented by: Admin: 01/27/19 20:08 Dose: Not Given Documented by: LIZZY Non-Admin Reason: Patient Refused Admin: 01/27/19 10:11 Dose: Not Given Documented by: ELVIN Non-Admin Reason: Patient Refused Admin: 01/26/19 21:56 Dose: Not Given Documented by: LIZZY Non-Admin Reason: Patient Refused Enalaprilat (Vasotec) 0 mg IV Q2HP PRN PRN Reason: Hypertension Last Admin: 01/27/19 04:32 Dose: 0.625 mg Documented by: LIZZY Enoxaparin Sodium (Lovenox) 60 mg SQ DAILY [facility] Last Admin: 01/31/19 08:22 Dose: 60 mg Documented by: Admin: 01/30/19 08:55 Dose: 60 mg Documented by: Admin: 01/29/19 09:39 Dose: 60 mg Documented by: STEVO Glucose (Insta-Glucose) 15 gm PO PRN PRN PRN Reason: Hypoglycemia Heparin Sodium (Porcine) (Heparin Flush) 2 ml IV Q12 [facility] Last Admin: 01/31/19 08:24 Dose: 2 ml Documented by: Admin: 01/30/19 21:07 Dose: 2 ml Documented by: Admin: 01/30/19 08:58 Dose: 2 ml Documented by: FER Comments: 2 mL per lumen; two lumens Hydromorphone HCl (Dilaudid) 0.25 - 0.75 mg IV Q2HP PRN; Protocol PRN Reason: Per Pain Protocol Last Admin: 01/29/19 06:23 Dose: 0.75 mg Documented by: Admin: 01/29/19 02:01 Dose: 0.75 mg Documented by: Admin: 01/28/19 19:18 Dose: 0.75 mg Documented by: Admin: 01/28/19 14:40 Dose: 0.75 mg Documented by: Admin: 01/28/19 07:39 Dose: 0.75 mg Documented by: FER Comments: Insulin Glargine (Lantus) 45 unit SQ BID [facility] Last Admin: 01/31/19 08:23 Dose: 45 unit Documented by: Admin: 01/30/19 21:05 Dose: 45 unit Documented by: Admin: 01/30/19 08:55 Dose: 45 unit Documented by: Admin: 01/29/19 21:02 Dose: 45 unit Documented by: Admin: 01/29/19 09:40 Dose: 45 unit Documented by: STEVO Insulin Human Lispro (Humalog) 0 unit SQ ACHS [facility]; Protocol Last Admin: 01/31/19 07:18 Dose: Not Given Documented by: MONO Non-Admin Reason: No Coverage Needed Admin: 01/30/19 21:06 Dose: 6 unit Documented by: Admin: 01/30/19 17:03 Dose: Not Given Documented by: FER Non-Admin Reason: Labs Outside of Range Comments: BG 139 Admin: 01/30/19 11:28 Dose: 3 unit Documented by: Admin: 01/30/19 07:26 Dose: Not Given Documented by: FER Non-Admin Reason: Labs Outside of Range Comments: BG 114 Admin: 01/29/19 21:02 Dose: 6 unit Documented by: Admin: 01/29/19 17:03 Dose: Not Given Documented by: STEVO Non-Admin Reason: No Coverage Needed Admin: 01/29/19 12:32 Dose: 6 unit Documented by: STEVO Comments: [id number] Admin: 01/29/19 07:12 Dose: Not Given Documented by: STEVO Non-Admin Reason: No Coverage Needed Admin: 01/28/19 20:30 Dose: 9 unit Documented by: Admin: 01/28/19 17:34 Dose: 12 unit Documented by: Admin: 01/28/19 12:21 Dose: 9 unit Documented by: Admin: 01/28/19 08:02 Dose: 9 unit Documented by: Admin: 01/28/19 04:47 Dose: 9 unit Documented by: Admin: 01/27/19 22:40 Dose: 12 unit Documented by: Admin: 01/27/19 20:07 Dose: 18 unit Documented by: Admin: 01/27/19 17:19 Dose: 15 unit Documented by: Admin: 01/27/19 11:01 Dose: 12 unit Documented by: Admin: 01/27/19 08:14 Dose: 15 unit Documented by: Admin: 01/26/19 21:38 Dose: Not Given Documented by: LIZZY Non-Admin Reason: Duplicate Admin: 01/26/19 19:57 Dose: 12 unit Documented by: LIZZY Labetalol HCl (Trandate) 0 mg IV Q2HP PRN PRN Reason: Hypertension Linezolid (Zyvox) 600 mg PO Q12 [facility]; Protocol Last Admin: 01/31/19 08:23 Dose: 600 mg Documented by: Admin: 01/30/19 21:06 Dose: 600 mg Documented by: Admin: 01/30/19 08:59 Dose: 600 mg Documented by: Admin: 01/29/19 21:01 Dose: 600 mg Documented by: Admin: 01/29/19 09:41 Dose: 600 mg Documented by: Admin: 01/28/19 20:31 Dose: 600 mg Documented by: Admin: 01/28/19 09:24 Dose: 600 mg Documented by: Admin: 01/27/19 20:06 Dose: 600 mg Documented by: LIZZY Lorazepam (Ativan) 0.5 mg PO Q6HP PRN PRN Reason: ANXIETY/SEDATION Last Admin: 01/31/19 01:46 Dose: 0.5 mg Documented by: Admin: 01/30/19 18:37 Dose: 0.5 mg Documented by: Admin: 01/29/19 21:02 Dose: 0.5 mg Documented by: Admin: 01/28/19 21:35 Dose: 0.5 mg Documented by: Admin: 01/28/19 15:25 Dose: 0.5 mg Documented by: Admin: 01/28/19 09:23 Dose: 0.5 mg Documented by: Admin: 01/27/19 21:18 Dose: 0.5 mg Documented by: Admin: 01/27/19 15:09 Dose: 0.5 mg Documented by: Admin: 01/26/19 19:58 Dose: 0.5 mg Documented by: LIZZY Magnesium Hydroxide (Milk Of Magnesia) 30 ml PO DAILYP PRN PRN Reason: Constipation Metformin HCl (Glucophage) 1,000 mg PO BIDCC [facility] Last Admin: 01/31/19 08:23 Dose: 1,000 mg Documented by: Admin: 01/30/19 17:40 Dose: 1,000 mg Documented by: Admin: 01/30/19 07:23 Dose: 1,000 mg Documented by: Admin: 01/29/19 16:58 Dose: 1,000 mg Documented by: Admin: 01/29/19 07:55 Dose: 1,000 mg Documented by: Admin: 01/28/19 17:39 Dose: 1,000 mg Documented by: Admin: 01/28/19 08:01 Dose: 1,000 mg Documented by: Admin: 01/27/19 17:20 Dose: 1,000 mg Documented by: Admin: 01/27/19 08:20 Dose: 1,000 mg Documented by: ELVIN Morphine Sulfate (Morphine) 15 mg PO Q6HP PRN; Protocol PRN Reason: Pain Last Admin: 01/28/19 22:39 Dose: 15 mg Documented by: Admin: 01/27/19 23:10 Dose: 15 mg Documented by: Admin: 01/27/19 17:46 Dose: 15 mg Documented by: ELVIN Ondansetron HCl (Zofran) 4 mg IV Q6HP PRN PRN Reason: Nausea And Vomiting Senna (Senokot) 2 tab PO HS [facility] Last Admin: 01/30/19 21:09 Dose: Not Given Documented by: LETHA Non-Admin Reason: Patient Refused Admin: 01/29/19 21:03 Dose: Not Given Documented by: LETHA Non-Admin Reason: Patient Refused Admin: 01/28/19 20:31 Dose: Not Given Documented by: LETHA Non-Admin Reason: Patient Refused Admin: 01/27/19 20:08 Dose: Not Given Documented by: LIZZY Non-Admin Reason: Patient Refused Admin: 01/26/19 21:56 Dose: Not Given Documented by: LIZZY Non-Admin Reason: Patient Refused Sodium Chloride (Saline Flush) 10 ml IV Q8 [facility] Last Admin: 01/31/19 05:32 Dose: 10 ml Documented by: Admin: 01/30/19 21:09 Dose: 10 ml Documented by: Admin: 01/30/19 15:25 Dose: Not Given Documented by: FER Non-Admin Reason: flushed in am and locked w/ Hep flush Admin: 01/30/19 05:40 Dose: 10 ml Documented by: Admin: 01/29/19 21:03 Dose: 10 ml Documented by: Admin: 01/29/19 14:47 Dose: 10 ml Documented by: Admin: 01/29/19 06:11 Dose: 10 ml Documented by: Admin: 01/28/19 20:31 Dose: 10 ml Documented by: Admin: 01/28/19 14:42 Dose: 10 ml Documented by: Admin: 01/28/19 06:58 Dose: Not Given Documented by: LIZZY Non-Admin Reason: Duplicate Admin: 01/27/19 20:09 Dose: 10 ml Documented by: Admin: 01/27/19 14:40 Dose: 10 ml Documented by: Admin: 01/27/19 04:32 Dose: Not Given Documented by: LIZZY Non-Admin Reason: Continuous IV Admin: 01/26/19 22:03 Dose: 10 ml Documented by: LIZZY Sodium Chloride (Saline Flush) 10 ml IV UD PRN PRN Reason: FLUSH Assessment and Plan - Narrative A/P Narrative: A: 1. 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 Screening for MRSA: nasal PCR neg Recommendations: - will recommend following regimen for treatment: PO Linezolid 600 mg q12 hrs x 6 weeks PO Rifampin 300 mg bid x 4 weeks Follow up labs: CBC weekly CMP, ESR and CRP every 2 weeks - remove the PICC line - Pt counseled about side effects of both medications, and when to call us - counseled about diabetes, is implications on current infection and how controlling it is important for overall healing process - wound care f/u with Dr Vides/Dr Pantoja * [facility] Clinic f/u scheduled on 02/15/19 at 2 pm Holger Rogers MD Infectious diseases
--- NOTE | 2019-01-31 13:44 | Surgical Pathology Report ---
HISTOLOGY SPECIMEN MICROSCOPIC DIAGNOSIS RIGHT FIFTH METATARSAL, AMPUTATION: -- ACUTE OSTEOMYELITIS. (EBD:zenia) PROCEDURAL IMPRESSION Right foot diabetic ulcer. GROSS DESCRIPTION Received in formalin labeled right fifth metatarsal, is a bony fragment that measures 2.9 cm in length by up to 1.5 cm greatest diameter. Additionally there is a separate fragment of soft tissue that measures 1.2 x 0.8 x 0.7 cm. The bony fragment is bisected and a full cross section is submitted following decalcification: A1 - full cross section of bony tissue; A2 - soft tissue fragment. (EBD:adj) Electronically Signed by: Priyanka Caraballo M.D.
== END 2019-01-31 12:15 | disposition home or self-care (01) | DRG 628 ==
LOC: ED 13:58 → MEDSUR 17:40
PROVIDERS: ADMIT Internal Medicine; ATTEND Internal Medicine